=== PATIENT | female | born 1945 | race Caucasian/White ===

== ENCOUNTER 2017-12-13 13:05 | Inpatient (IN) ==
[2017-12-14] MEDS ORDERED: *HR* OxyCODONE Immed Rel 5 MG TABLET PO PRN (17:46)
[2017-12-14] MEDS ORDERED: *HR* Dextrose 50 % in Water (Syg) 50 ML SYRINGE IVP PRN (17:50)
[2017-12-14] MEDS ORDERED: Dextrose Gel 15 GM/37.5 ML TUBE PO PRN ×2 (17:50)
[2017-12-14] MEDS ORDERED: D5% in Water 1,000 ML IVC PRN (17:50)
[2017-12-14] MEDS ORDERED: tiZANidine 4 MG TABLET PO PRN (17:54)
[2017-12-14] MEDS ORDERED: Mag Hydrox/Al Hydrox/Simeth 30 ML UDC PO PRN (17:55)
[2017-12-14] MEDS ORDERED: Acetaminophen 325 MG TABLET PO PRN (18:13)
[2017-12-14] MEDS ORDERED: Acetaminophen 325 MG TABLET PO SCH (20:00)
[2017-12-14] MEDS: Insulin LISPRO 300 UNITS/3 ML VIAL SQ SCH (21:18)
[2017-12-14] MEDS: *HR* OxyCODONE Immed Rel 5 MG TABLET PO PRN (21:53)
[2017-12-14] MEDS: Gabapentin 300 MG CAPSULE PO SCH (21:53)
[2017-12-14] MEDS: Latanoprost 2.5 ML BOTTLE BOTH EYES SCH (21:53)
[2017-12-15] MEDS: *HR* OxyCODONE Immed Rel 5 MG TABLET PO PRN ×4 (04:20→21:14)
[2017-12-15] MEDS: *HR* Enoxaparin 40 MG/0.4 ML SYRINGE SQ SCH (04:20)
[2017-12-15 05:42] LABS: Basophils % 0.1 %; Eosinophils # 0.3 K/mcL (0.0-0.6); Eosinophils % 3.4 %; Hematocrit 29.4 % (35.3-44.9); Hemoglobin 9.2 g/dL (11.5-15.4); Immature Granulocytes % 1.9 % (0-4); Lymphocytes # 1.7 K/mcL (0.6-4.6); Lymphocytes % 19.5 %; Mean Corpuscular HGB Conc 31.3 g/dL (31.6-35.5); Mean Corpuscular Volume 92.7 fL (83.0-100.0); Mean Platelet Volume 10.1 fL (9.4-12.4); Monocytes # 0.8 K/mcL (0.0-1.3); Monocytes % 8.9 %; Neutrophils # 5.9 K/mcL (1.6-8.9); Platelet Count 307 K/mcL (140-400); Red Blood Count 3.17 M/mcL (3.82-4.97); Red Cell Distribution Width 14.6 % (11.5-14.5); Segmented Neutrophils % 66.2 %
[2017-12-15 05:46] LABS: INR 1.2; Prothrombin Time 13.3 Seconds (9.4-12.1)
[2017-12-15 05:57] LABS: Alanine Aminotransferase 52 Units/L (7-52); Albumin 3.1 g/dL (3.5-5.7); Albumin/Globulin Ratio 1.1 (1.1-2.2); Alkaline Phosphatase 138 Units/L (34-104); Aspartate Amino Transferase 15 Units/L (13-39); BUN/Creatinine Ratio 19 (6-26); Bilirubin,Total 0.5 mg/dL (0.3-1.0); Blood Urea Nitrogen 11 mg/dL (8-23); Calcium 8.5 mg/dL (8.6-10.3); Carbon Dioxide 30 mEq/L (23-29); Chloride 97 mEq/L (98-107); Globulin 2.8 g/dL (2.4-3.5); Glucose 172 mg/dL (70-105); Osmolality,Calculated 287 (280-300); Potassium 3.7 mEq/L (3.5-5.1); Sodium 137 mEq/L (136-145); Total Protein 5.9 g/dL (6.4-8.9); eGFR For Non-African Americans > 60 (> 60)
[2017-12-15] MEDS: Insulin LISPRO 300 UNITS/3 ML VIAL SQ SCH ×4 (09:34→21:11)
[2017-12-15] MEDS: *HR* Metformin 500 MG TABLET PO SCH ×2 (09:36→17:01)
[2017-12-15] MEDS: Multivit/Ca/Min/Fe/FA 1 TAB TABLET PO SCH (09:36)
[2017-12-15] MEDS: Cholecalciferol (D-3) 1,000 UNIT TABLET PO SCH (09:36)
--- NOTE | 2017-12-15 10:54 | Internal Med History&Physical ---
Date of Encounter: 12/15/17 Time of Encounter: 10:49 Assessment and Plan (1) Status post lumbar spine surgery for decompression of spinal cord Current visit: Yes Status: Acute We will hopefully improve the patient's posture and gait with physical and occupational therapy. (2) HTN (hypertension) Current visit: No Status: Chronic Clinically stable, will follow. Qualifiers: Hypertension type: essential hypertension Qualified Code(s): I10 - Essential (primary) hypertension (3) Diabetes Current visit: No Status: Chronic We will continue current regimen and watch with sliding scale insulin. Qualifiers: Diabetes mellitus type: type 2 Diabetes mellitus terminal operator insulin use: without terminal operator use Diabetes mellitus complication status: with unspecified complications Qualified Code(s): E11.8 - Type 2 diabetes mellitus with unspecified complications (4) Acute blood loss anemia Current visit: No Status: Acute Will follow, serially. (5) H/O gastric bypass Current visit: No Status: Acute Will follow, continue current regimen, may need medication dose adjustments because of this. (6) Glaucoma Current visit: Yes Status: Acute We will continue latanoprost drops. Qualifiers: Glaucoma type: unspecified Laterality: bilateral Qualified Code(s): H40.9 - Unspecified glaucoma Internal Medicine - H&P: HPI Chief complaint: Back pain Admitted From: Hospital to Hospital Transfer Plans for Post Hospital Care: Home History of present illness: Ms. Chandler is a 72 year old female status post revision lumbar spine fusion on 12/06/2017. This was done at [place] by Dr. Dunn, but patient needed a revision surgery a couple of days later as this was both an anterior and posterior approach. She has done well postoperatively and has persistent pain which is actually improving. She had surgery on her spine years ago and has never been able to straighten up. She is hopeful that she will be able to have normal station and gait and is here for therapy to improve this. The patient's past medical history was reviewed. She has a history of gastric bypass in 2004. Prior to that, she had diabetes, hypertension, GERD, and sleep apnea. Reflux is much better after her bypass. She does not believe she has had a recurrence of sleep apnea, after surgery. She states that her diabetes has been controlled with pills only. She takes multiple supplements because of her gastric bypass. She has glaucoma and is treated with latanoprost drops for same. She is a retired OB nurse, is living with her of 50 years, does not smoke or drink. Glaucoma is in her family and family history is otherwise noncontributory. She wears eyeglasses. She lost about 100 pounds with her gastric bypass but has gained 50 or 60 pounds of that back after immobility from her surgery. She states that her feet are always cold and that they have been especially cold after her surgery. Bowels and bladder have been functioning well, postoperatively. Past Med Surg Social Fam HX - Past Medical History Medical history: diabetes, hypertension Psychiatric history: no psych history - Past Surgical History Surgical History: cholecystectomy, knee replacement, other Additional surgical history: gastric bypass, TKR in 2006, [place] in 2004, femur revision in 2017, ALIF in 2018 - Social History Smoking Status: Never smoker Smokeless Tobacco Status: No Alcohol use: none Drug use: none - Family History Mother Living Status: Cause of : "I lost my mom to a heart condition, she was 85" Hx Family Cardiac Disorders: Yes Father Living Status: Cause of : "My dad from mesothelioma" Hx Family Cancer: Yes Internal Medicine - H&P: Meds Ascorbic Acid [Vitamin C] 1,000 mg PO DAILY 01/19/15 [History] Cholecalciferol (Vitamin D3) [Vitamin D3] 2,000 unit PO DAILY 01/19/15 [History] Cyanocobalamin (Vitamin B-12) [Vitamin B12] 100 mcg PO 3XW 01/19/15 [History] Latanoprost [Xalatan] 1 drop BOTH EYES HS 01/19/15 [History] Multivitamin [Multi-Day Vitamins] 1 tab PO DAILY 01/19/15 [History] Marquand-3S/Dha/Epa/Fish Oil [Fish Oil 1,200 mg Softgel] 1 cap PO DAILY 01/19/15 [ History] Omeprazole [PriLOSEC] 40 mg PO BID #60 cap 07/14/16 [Rx] Acetaminophen [Tylenol] 325 mg PO Q4HR 12/14/17 [History] Cholecalciferol (D-3) [Vitamin D] 4,000 unit PO DAILY 12/14/17 [History] Ferrous Sulfate [Iron] 325 mg PO TIDWM 12/14/17 [History] Gabapentin [Neurontin] 300 mg PO HS 12/14/17 [History] Metformin HCl 500 mg PO BIDWM 12/14/17 [History] MiraLAX 17 gm PO DAILY 12/14/17 [History] OxyCODONE Immed Rel 5 mg PO PRN PRN 12/14/17 [History] Vitamin B-12 1,000 mg PO 2XW 12/14/17 [History] 3 Allergy/AdvReac Type Severity Reaction Status Date / Time morphine Allergy Hives Verified 01/23/15 17:24 lisinopril AdvReac Mild Cough Verified 01/23/15 17:24 All Systems PM: Patient has no complaint of chest discomfort, dyspnea, orthopnea, breathing problems, palpitations, nausea or vomiting, constipation or diarrhea, other changes in bowel habits, heartburn, difficulty with urination, kidney problems or kidney stones, fevers chills or sweats, rash or itching, seizures, headache or lightheadedness, heat or cold intolerance, blood problems or anemia, or other new complaints, except as mentioned above. Review of systems is otherwise negative. - Constitutional Vitals: Temp Pulse Resp BP Pulse Ox 98.7 F 81 17 116/54 95 12/15/17 07:29 12/15/17 07:29 12/15/17 07:29 12/15/17 07:29 12/15/17 07:29 Exam: Examination: (Except as mentioned above): General: In no apparent distress, alert and oriented 3. Head: Atraumatic and normocephalic. Eyes: Extraocular muscles are intact, pupils equal round and reactive to light and accommodation. Sclerae anicteric. Ears: External ears are normal to inspection and hearing is grossly normal. Nose: Patent without lesion noted. Mouth: No intraoral lesions seen. Dentition is unremarkable. Neck: Supple with trachea midline. There is no thyromegaly or adenopathy and carotids are 2+ without bruit heard. Respiratory: No use of accessory muscles. Lungs are clear throughout. Normal airflow. Cardiovascular: Regular rate and rhythm without murmur appreciated. Abdomen: Bowel sounds are normal. No hepatosplenomegaly masses or tenderness. Morbidly obese and therefore difficult to palpate deeply. Extremities: No cyanosis clubbing or edema. There is no cord or calf tenderness. While feet are violaceous and cold, there is good capillary refill and good posterior tibial pulses. Neurological: A and O 3. Cranial nerves II through XII are intact. No focal deficits and no abnormal movements or postures. Skin: Warm and non-diaphoretic with no lesions noted. Breasts, pelvic and rectal: Not examined. She has a lumbar spine wound which is healing. There is approximately 2 cm spot of serosanguineous drainage, dried , at the dressing. No signs of infection. Internal Med - H&P Results - Labs CBC & Chem 7: 12/15/17 05:20 12/15/17 05:20 Labs: Short CBC 12/15/17 Range/Units 05:20 WBC 8.9 (4.3-11.1) K/mcL Hgb 9.2 L (11.5-15.4) g/dL Hct 29.4 L (35.3-44.9) % Plt Count 307 (140-400) K/mcL Neutrophils # 5.9 (1.6-8.9) K/mcL BMP 12/15/17 05:20 Sodium 137 Potassium 3.7 Chloride 97 L Carbon Dioxide 30 H BUN 11 Creatinine 0.59 L Glucose 172 H Calcium 8.5 L Liver Function 12/15/17 Range/Units 05:20 Total Bilirubin 0.5 (0.3-1.0) mg/dL AST 15 (13-39) Units/L ALT 52 (7-52) Units/L Alkaline Phosphatase 138 H (34-104) Units/L Albumin 3.1 L (3.5-5.7) g/dL
[2017-12-15] MEDS: tiZANidine 4 MG TABLET PO PRN (17:01)
[2017-12-15] MEDS: Gabapentin 300 MG CAPSULE PO SCH (21:12)
[2017-12-15] MEDS: Latanoprost 2.5 ML BOTTLE BOTH EYES SCH (21:12)
[2017-12-16] MEDS: *HR* OxyCODONE Immed Rel 5 MG TABLET PO PRN ×5 (02:42→21:06)
[2017-12-16] MEDS: *HR* Enoxaparin 40 MG/0.4 ML SYRINGE SQ SCH (06:34)
[2017-12-16] MEDS: *HR* Metformin 500 MG TABLET PO SCH ×2 (08:03→17:45)
[2017-12-16] MEDS: Multivit/Ca/Min/Fe/FA 1 TAB TABLET PO SCH (08:03)
[2017-12-16] MEDS: Cholecalciferol (D-3) 1,000 UNIT TABLET PO SCH (08:03)
[2017-12-16] MEDS: tiZANidine 4 MG TABLET PO PRN ×2 (10:49→17:45)
[2017-12-16] MEDS: Insulin LISPRO 300 UNITS/3 ML VIAL SQ SCH ×4 (10:55→21:05)
--- NOTE | 2017-12-16 11:24 | Internal Med Progress Note ---
Date of Encounter: 12/16/17 Time of Encounter: 11:22 - Assessment and plan (1) Status post lumbar spine surgery for decompression of spinal cord Current Visit: Yes Status: Acute Assessment and plan: Continue PT and OT. Continue current medications were pain. Back brace when up. Follow up with ortho as scheduled. (2) HTN (hypertension) Current Visit: Yes Status: Chronic Assessment and plan: Controlled with current medication. Monitor blood pressure. Qualifiers: Hypertension type: essential hypertension Qualified Code(s): I10 - Essential (primary) hypertension (3) Diabetes Current Visit: Yes Status: Chronic Assessment and plan: Continue current medication. Monitor fingerstick blood sugar. Will adjust medications as necessary. Qualifiers: Diabetes mellitus type: type 2 Diabetes mellitus manager intermediate insulin use: without manager intermediate use Diabetes mellitus complication status: with unspecified complications Qualified Code(s): E11.8 - Type 2 diabetes mellitus with unspecified complications (4) H/O gastric bypass Current Visit: Yes Status: Acute Assessment and plan: Continue current supplements. (5) Glaucoma Current Visit: Yes Status: Acute Assessment and plan: Continue current eyedrops. Qualifiers: Glaucoma type: unspecified Laterality: bilateral Qualified Code(s): H40.9 - Unspecified glaucoma - Time Spent With Patient less than 15 minutes - Subjective Interval history: Ambulating in hallway with standby assist with Walker. Wearing back brace. States pain is controlled. Occasionally having muscle spasms. Maintaining appetite and hydration. States bowels moved yesterday. at bedside. - Constitutional Vitals: Temp Pulse Resp BP Pulse Ox 98.2 F 62 17 106/67 90 12/16/17 07:55 12/16/17 07:55 12/16/17 07:55 12/16/17 07:55 12/16/17 07:55 General appearance: Present: cooperative, A&O X 3, pleasant, no acute distress, obese, answers questions appropriately - Head Head exam: Present: atraumatic, normocephalic - Eye Eye exam: Present: PERRL, conjuntiva pink, sclera anicteric Pupils: Present: PERRL - Neck Neck exam general surgery: Present: supple, trachea midline. Absent: lymphadenopathy - Respiratory Respiratory exam: Present: CTAB. Absent: accessory muscle use, rales, rhonchi, wheezes - Cardiovascular Cardiovascular exam: Present: RRR, +S1, +S2. Absent: diastolic murmur, gallop, rubs, systolic murmur - GI/Abdominal GI/Abdominal exam: Present: normal bowel sounds, soft, no peritoneal signs. Absent: distended, tenderness - Extremities Exam Extremities exam: Present: warm, radial pulses palpable and symmetrical. Absent : calf tenderness, cyanotic, pedal edema - Neurological Exam Neurological exam: Present: CN II-XII intact, oriented X3, no focal deficits. Absent: pronater drift, facial droop, speech deficit - Skin Skin exam: Present: dry, intact Internal Medicine: Result - Labs CBC & Chem 7: 12/15/17 05:20 12/15/17 05:20 - ABG Interpretation ABG results: PT/INR, D-dimer PT 13.3 Seconds (9.4-12.1) H 12/15/17 05:20 Consult Discharge Plan - Plan Referrals: Jae Davis MD [Primary Care Provider] -
[2017-12-16] MEDS: Latanoprost 2.5 ML BOTTLE BOTH EYES SCH (21:06)
[2017-12-16] MEDS: Gabapentin 300 MG CAPSULE PO SCH (21:06)
[2017-12-17] MEDS: *HR* OxyCODONE Immed Rel 5 MG TABLET PO PRN ×4 (01:05→17:56)
[2017-12-17] MEDS: *HR* Enoxaparin 40 MG/0.4 ML SYRINGE SQ SCH (06:25)
[2017-12-17] MEDS: tiZANidine 4 MG TABLET PO PRN ×3 (06:27→21:34)
[2017-12-17] MEDS: Cholecalciferol (D-3) 1,000 UNIT TABLET PO SCH (08:48)
[2017-12-17] MEDS: Multivit/Ca/Min/Fe/FA 1 TAB TABLET PO SCH (08:48)
[2017-12-17] MEDS: *HR* Metformin 500 MG TABLET PO SCH ×2 (08:49→17:53)
[2017-12-17] MEDS: Insulin LISPRO 300 UNITS/3 ML VIAL SQ SCH ×4 (08:53→21:35)
--- NOTE | 2017-12-17 10:56 | Internal Med Progress Note ---
Date of Encounter: 12/17/17 Time of Encounter: 10:52 - Assessment and plan (1) Status post lumbar spine surgery for decompression of spinal cord Current Visit: Yes Status: Acute Assessment and plan: Continue PT and OT. Continue current medications were pain. Back brace when up. Follow up with ortho as scheduled. (2) HTN (hypertension) Current Visit: Yes Status: Chronic Assessment and plan: Controlled with current medication. Monitor blood pressure. Qualifiers: Hypertension type: essential hypertension Qualified Code(s): I10 - Essential (primary) hypertension (3) Diabetes Current Visit: Yes Status: Chronic Assessment and plan: Continue current medication. Monitor fingerstick blood sugar. Will adjust medications as necessary. Qualifiers: Diabetes mellitus type: type 2 Diabetes mellitus medical terminologist insulin use: without medical terminologist use Diabetes mellitus complication status: with unspecified complications Qualified Code(s): E11.8 - Type 2 diabetes mellitus with unspecified complications (4) H/O gastric bypass Current Visit: Yes Status: Acute Assessment and plan: Continue current supplements. (5) Glaucoma Current Visit: Yes Status: Acute Assessment and plan: Continue current eyedrops. Qualifiers: Glaucoma type: unspecified Laterality: bilateral Qualified Code(s): H40.9 - Unspecified glaucoma - Time Spent With Patient less than 15 minutes - Subjective Interval history: Ambulating in hallway with standby assist with Walker. Wearing back brace. States pain is controlled. Occasionally having muscle spasms, but tizanadine helpful. Maintaining appetite and hydration. States bowels moved yesterday. at bedside. - Constitutional Vitals: Temp Pulse Resp BP Pulse Ox 98.1 F 73 16 132/88 91 12/17/17 07:46 12/17/17 07:46 12/17/17 07:46 12/17/17 08:03 12/17/17 07:46 General appearance: Present: cooperative, A&O X 3, pleasant, no acute distress, obese, answers questions appropriately - Head Head exam: Present: atraumatic, normocephalic - Eye Eye exam: Present: PERRL, conjuntiva pink, sclera anicteric Pupils: Present: PERRL - Neck Neck exam general surgery: Present: supple, trachea midline. Absent: lymphadenopathy - Respiratory Respiratory exam: Present: CTAB. Absent: accessory muscle use, rales, rhonchi, wheezes - Cardiovascular Cardiovascular exam: Present: RRR, +S1, +S2. Absent: diastolic murmur, gallop, rubs, systolic murmur - GI/Abdominal GI/Abdominal exam: Present: normal bowel sounds, soft, no peritoneal signs. Absent: distended, tenderness - Extremities Exam Extremities exam: Present: warm, radial pulses palpable and symmetrical. Absent : calf tenderness, cyanotic, pedal edema - Incison Comments: lumbar incision dry and intact - Neurological Exam Neurological exam: Present: CN II-XII intact, oriented X3, no focal deficits. Absent: pronater drift, facial droop, speech deficit - Skin Skin exam: Present: dry, intact Internal Medicine: Result - Labs CBC & Chem 7: 12/15/17 05:20 12/15/17 05:20 - ABG Interpretation ABG results: PT/INR, D-dimer PT 13.3 Seconds (9.4-12.1) H 12/15/17 05:20 Consult Discharge Plan - Plan Referrals: Jae Davis MD [Primary Care Provider] -
[2017-12-17] MEDS: Latanoprost 2.5 ML BOTTLE BOTH EYES SCH (21:34)
[2017-12-17] MEDS: Gabapentin 300 MG CAPSULE PO SCH (21:34)
[2017-12-18] MEDS: *HR* OxyCODONE Immed Rel 5 MG TABLET PO PRN ×4 (02:42→16:57)
[2017-12-18] MEDS: tiZANidine 4 MG TABLET PO PRN (05:58)
[2017-12-18] MEDS: *HR* Enoxaparin 40 MG/0.4 ML SYRINGE SQ SCH (05:58)
[2017-12-18] MEDS: Multivit/Ca/Min/Fe/FA 1 TAB TABLET PO SCH (09:11)
[2017-12-18] MEDS: *HR* Metformin 500 MG TABLET PO SCH ×2 (09:11→18:55)
[2017-12-18] MEDS: Cholecalciferol (D-3) 1,000 UNIT TABLET PO SCH (09:13)
[2017-12-18] MEDS: Insulin LISPRO 300 UNITS/3 ML VIAL SQ SCH ×4 (10:15→22:02)
--- NOTE | 2017-12-18 14:28 | Internal Med Progress Note ---
Date of Encounter: 12/18/17 Time of Encounter: 12:30 - Assessment and plan (1) Status post lumbar spine surgery for decompression of spinal cord Current Visit: Yes Status: Acute Assessment and plan: Patient is progressing nicely and we will continue therapies. Discharge in a few days? (2) HTN (hypertension) Current Visit: Yes Status: Chronic Assessment and plan: Clinically stable. We will continue home regimen and follow. Qualifiers: Hypertension type: essential hypertension Qualified Code(s): I10 - Essential (primary) hypertension (3) Diabetes Current Visit: Yes Status: Chronic Assessment and plan: Control is adequate. We will continue to follow with sliding scale insulin and current regimen. Qualifiers: Diabetes mellitus type: type 2 Diabetes mellitus reset merchandiser insulin use: without reset merchandiser use Diabetes mellitus complication status: with unspecified complications Qualified Code(s): E11.8 - Type 2 diabetes mellitus with unspecified complications (4) Acute blood loss anemia Current Visit: No Status: Acute (5) H/O gastric bypass Current Visit: Yes Status: Acute (6) Glaucoma Current Visit: Yes Status: Acute Qualifiers: Glaucoma type: unspecified Laterality: bilateral Qualified Code(s): H40.9 - Unspecified glaucoma - Subjective Interval history: Patient is feeling much better with only mild pain. She has no breathing problems or changes in bowel habits, etc. Patient has no complaint of chest discomfort, dyspnea, orthopnea, palpitations, nausea or vomiting, constipation or diarrhea, other changes in bowel habits, difficulty with urination, rash or itching, or other new complaints, except as mentioned above. Review of systems is otherwise negative. I discussed management of her care with nursing staff. - Constitutional Vitals: Temp Pulse Resp BP Pulse Ox 98.3 F 83 18 101/64 95 12/18/17 09:00 12/18/17 09:00 12/18/17 09:00 12/18/17 09:00 12/18/17 09:00 Exam: Examination: (Except as mentioned above): General: In no apparent distress. Alert and oriented 3. Nondiaphoretic. Head: Atraumatic and normocephalic. Respiratory: No use of accessory muscles. Lungs are clear throughout. Normal airflow. Cardiovascular: Regular rate and rhythm without murmur appreciated. Abdomen: Bowel sounds are normal. No hepatosplenomegaly mass or tenderness appreciated. Obese and therefore difficult to palpate deeply. Extremities: No cyanosis clubbing or edema. Skin: Warm and non-diaphoretic with no new lesions noted. Internal Medicine: Result - Labs CBC & Chem 7: 12/15/17 05:20 12/15/17 05:20 - ABG Interpretation ABG results: PT/INR, D-dimer PT 13.3 Seconds (9.4-12.1) H 12/15/17 05:20 Consult Discharge Plan - Plan Referrals: Jae Davis MD [Primary Care Provider] -
[2017-12-18] MEDS: Latanoprost 2.5 ML BOTTLE BOTH EYES SCH (21:59)
[2017-12-18] MEDS: Gabapentin 300 MG CAPSULE PO SCH (21:59)
[2017-12-19] MEDS: *HR* OxyCODONE Immed Rel 5 MG TABLET PO PRN ×5 (01:13→20:17)
[2017-12-19] MEDS: *HR* Enoxaparin 40 MG/0.4 ML SYRINGE SQ SCH (05:36)
[2017-12-19] MEDS: tiZANidine 4 MG TABLET PO PRN ×3 (05:38→20:17)
[2017-12-19] MEDS: Multivit/Ca/Min/Fe/FA 1 TAB TABLET PO SCH (09:41)
[2017-12-19] MEDS: Cholecalciferol (D-3) 1,000 UNIT TABLET PO SCH (09:42)
[2017-12-19] MEDS: *HR* Metformin 500 MG TABLET PO SCH ×2 (09:42→18:56)
[2017-12-19] MEDS: Insulin LISPRO 300 UNITS/3 ML VIAL SQ SCH ×4 (09:45→20:18)
--- NOTE | 2017-12-19 12:41 | Internal Med Progress Note ---
Addendum entered and electronically signed by Hasmukh Dodge MD 12/20/17 14:25: I have personally performed a face to face evaluation on this patient. I have r eviewed and agree with the care plan. History and Exam by me shows: The patient was evaluated by me yesterday but the note was not complete. This documentation is being completed today for that reason. Complaint of abdominal wound, as before. I feel this is not dehiscence and will recheck tomorrow. Pain control was better. Occasionally, she still has severe pain in her legs. She is moving bowels, adequately. Discussed care with other providers and/or nursing. Patient has no complaint of chest discomfort, dyspnea, orthopnea, palpitations, nausea or vomiting, constipation or diarrhea, other changes in bowel habits, difficulty with urination, rash or itching, or other new complaints, except as mentioned above. Review of systems is otherwise negative. Examination: (Except as mentioned above): General: In no apparent distress. Alert and oriented 3. Nondiaphoretic. Head: Atraumatic and normocephalic. Respiratory: No use of accessory muscles. Lungs are clear throughout. Normal airflow. Cardiovascular: Regular rate and rhythm without murmur appreciated. Abdomen: Bowel sounds are normal. No hepatosplenomegaly mass or tenderness appreciated. Obese and therefore difficult to palpate deeply. Extremities: No cyanosis clubbing or edema. Skin: Warm and non-diaphoretic with no new lesions noted. Original Note: Date of Encounter: 12/19/17 Time of Encounter: 12:39 - Assessment and plan (1) Status post lumbar spine surgery for decompression of spinal cord Current Visit: Yes Status: Acute Assessment and plan: Continue PT and OT. Continue current medications were pain. Back brace when up. Follow up with ortho as scheduled. (2) HTN (hypertension) Current Visit: Yes Status: Chronic Assessment and plan: Controlled with current medication. Monitor blood pressure. Qualifiers: Hypertension type: essential hypertension Qualified Code(s): I10 - Essential (primary) hypertension (3) Diabetes Current Visit: Yes Status: Chronic Assessment and plan: Continue current medication. Monitor fingerstick blood sugar. Will adjust medications as necessary. Qualifiers: Diabetes mellitus type: type 2 Diabetes mellitus termite renewal inspector insulin use: without shelter use Diabetes mellitus complication status: with unspecified complications Qualified Code(s): E11.8 - Type 2 diabetes mellitus with unspecified complications (4) H/O gastric bypass Current Visit: Yes Status: Acute Assessment and plan: Continue current supplements. (5) Glaucoma Current Visit: Yes Status: Acute Assessment and plan: Continue current eyedrops. Qualifiers: Glaucoma type: unspecified Laterality: bilateral Qualified Code(s): H40.9 - Unspecified glaucoma - Time Spent With Patient less than 15 minutes - Subjective Interval history: Ambulating in hallway with standby assist with Walker. Wearing back brace. States pain is controlled. Maintaining appetite and hydration. States bowels moved yesterday. at bedside. - Constitutional Vitals: Temp Pulse Resp BP Pulse Ox 98.4 F 71 18 92/58 91 12/19/17 08:32 12/19/17 08:32 12/19/17 08:32 12/19/17 08:32 12/19/17 08:32 General appearance: Present: cooperative, A&O X 3, pleasant, no acute distress, obese, answers questions appropriately - Head Head exam: Present: atraumatic, normocephalic - Eye Eye exam: Present: PERRL, conjuntiva pink, sclera anicteric Pupils: Present: PERRL - Neck Neck exam general surgery: Present: supple, trachea midline. Absent: lymphadenopathy - Respiratory Respiratory exam: Present: CTAB. Absent: accessory muscle use, rales, rhonchi, wheezes - Cardiovascular Cardiovascular exam: Present: RRR, +S1, +S2. Absent: diastolic murmur, gallop, rubs, systolic murmur - GI/Abdominal GI/Abdominal exam: Present: normal bowel sounds, soft, no peritoneal signs. Ab sent: distended, tenderness - Extremities Exam Extremities exam: Present: warm, radial pulses palpable and symmetrical. Absent: calf tenderness, cyanotic, pedal edema - Neurological Exam Neurological exam: Present: CN II-XII intact, oriented X3, no focal deficits. Absent: pronater drift, facial droop, speech deficit - Skin Skin exam: Present: dry, intact Internal Medicine: Result - Labs CBC & Chem 7: 12/15/17 05:20 12/15/17 05:20 - ABG Interpretation ABG results: PT/INR, D-dimer PT 13.3 Seconds (9.4-12.1) H 12/15/17 05:20 Consult Discharge Plan - Plan Referrals: Jae Davis MD [Primary Care Provider] -
[2017-12-19] MEDS: Gabapentin 300 MG CAPSULE PO SCH (20:16)
[2017-12-19] MEDS: Latanoprost 2.5 ML BOTTLE BOTH EYES SCH (20:18)
[2017-12-20] MEDS: *HR* Metformin 500 MG TABLET PO SCH ×2 (08:33→16:48)
[2017-12-20] MEDS: Multivit/Ca/Min/Fe/FA 1 TAB TABLET PO SCH (08:33)
[2017-12-20] MEDS: *HR* OxyCODONE Immed Rel 5 MG TABLET PO PRN ×3 (08:33→20:35)
[2017-12-20] MEDS: Cholecalciferol (D-3) 1,000 UNIT TABLET PO SCH (08:33)
[2017-12-20] MEDS: tiZANidine 4 MG TABLET PO PRN (11:37)
[2017-12-20 11:53] LABS: Basophils % 0.3 %; Eosinophils # 0.2 K/mcL (0.0-0.6); Eosinophils % 2.3 %; Hematocrit 30.8 % (35.3-44.9); Hemoglobin 9.4 g/dL (11.5-15.4); Immature Granulocytes % 0.7 % (0-4); Lymphocytes # 1.8 K/mcL (0.6-4.6); Lymphocytes % 19.8 %; Mean Corpuscular HGB Conc 30.5 g/dL (31.6-35.5); Mean Corpuscular Hemoglobin 29.3 pg (28.0-33.3); Mean Platelet Volume 10.2 fL (9.4-12.4); Monocytes # 0.6 K/mcL (0.0-1.3); Monocytes % 6.4 %; Neutrophils # 6.4 K/mcL (1.6-8.9); Platelet Count 436 K/mcL (140-400); Red Blood Count 3.21 M/mcL (3.82-4.97); Red Cell Distribution Width 14.6 % (11.5-14.5); Segmented Neutrophils % 70.5 %
[2017-12-20 12:14] LABS: BUN/Creatinine Ratio 13 (6-26); Blood Urea Nitrogen 10 mg/dL (8-23); Calcium 9.5 mg/dL (8.6-10.3); Carbon Dioxide 30 mEq/L (23-29); Chloride 97 mEq/L (98-107); Glucose 163 mg/dL (70-105); Osmolality,Calculated 285 (280-300); Potassium 3.6 mEq/L (3.5-5.1); Sodium 136 mEq/L (136-145); eGFR For Non-African Americans > 60 (> 60)
[2017-12-20] MEDS: Insulin LISPRO 300 UNITS/3 ML VIAL SQ SCH ×3 (12:59→20:35)
--- NOTE | 2017-12-20 14:29 | Internal Med Progress Note ---
Date of Encounter: 12/20/17 Time of Encounter: 14:27 - Assessment and plan (1) Status post lumbar spine surgery for decompression of spinal cord Current Visit: Yes Status: Acute Assessment and plan: She continues to progress well. See comments above about abdominal wound. No signs of infection. (2) HTN (hypertension) Current Visit: Yes Status: Chronic Assessment and plan: Clinically stable. We will continue home regimen and follow. Qualifiers: Hypertension type: essential hypertension Qualified Code(s): I10 - Essential (primary) hypertension (3) Diabetes Current Visit: Yes Status: Chronic Assessment and plan: Control is adequate. We will continue to follow with sliding scale insulin and current regimen. Qualifiers: Diabetes mellitus type: type 2 Diabetes mellitus bulb grower insulin use: without bulb grower use Diabetes mellitus complication status: with unspecified complications Qualified Code(s): E11.8 - Type 2 diabetes mellitus with unspecified complications (4) Acute blood loss anemia Current Visit: No Status: Acute Assessment and plan: Stable and well tolerated, improving. (5) H/O gastric bypass Current Visit: Yes Status: Acute Assessment and plan: Clinically stable and no acute issues. (6) Glaucoma Current Visit: Yes Status: Acute Assessment and plan: Continue current meds. Qualifiers: Glaucoma type: unspecified Laterality: bilateral Qualified Code(s): H40.9 - Unspecified glaucoma - Subjective Interval history: Patient is pleased with her progress and states that her pain is generally controlled. She has been moving her bowels without diarrhea or constipation. She is generally making strides with physical therapy and occupational therapy. Plan is to discharge soon. Patient has no complaint of chest discomfort, dyspnea, orthopnea, palpitations, nausea or vomiting, constipation or diarrhea, other changes in bowel habits, difficulty with urination, rash or itching, or other new complaints, except as mentioned above. Review of systems is otherwise negative. I discussed management of her care with nursing staff. - Constitutional Vitals: Temp Pulse Resp BP Pulse Ox 98.0 F 89 17 145/69 98 12/20/17 07:00 12/20/17 07:00 12/20/17 07:00 12/20/17 07:00 12/20/17 07:00 Exam: Examination: (Except as mentioned above): General: In no apparent distress. Alert and oriented 3. Nondiaphoretic. Head: Atraumatic and normocephalic. Respiratory: No use of accessory muscles. Lungs are clear throughout. Normal airflow. Cardiovascular: Regular rate and rhythm without murmur appreciated. Abdomen: Bowel sounds are normal. No hepatosplenomegaly mass or tenderness appreciated. Obese and therefore difficult to palpate deeply. Extremities: No cyanosis clubbing or edema. Skin: Warm and non-diaphoretic with no new lesions noted. Abdominal incision looks well opposed and I feel that she simply removed "scab" the other day. I advised patient, nursing, occupational therapy and physical therapy to make sure that this is covered before any dressing changes, etc. Internal Medicine: Result - Labs CBC & Chem 7: 12/20/17 05:25 12/20/17 05:25 Labs: Short CBC 12/20/17 Range/Units 05:25 WBC 9.1 (4.3-11.1) K/mcL Hgb 9.4 L (11.5-15.4) g/dL Hct 30.8 L (35.3-44.9) % Plt Count 436 H (140-400) K/mcL Neutrophils # 6.4 (1.6-8.9) K/mcL BMP 12/20/17 05:25 Sodium 136 Potassium 3.6 Chloride 97 L Carbon Dioxide 30 H BUN 10 Creatinine 0.76 Glucose 163 H Calcium 9.5 - ABG Interpretation ABG results: PT/INR, D-dimer PT 13.3 Seconds (9.4-12.1) H 12/15/17 05:20 Consult Discharge Plan - Plan Referrals: Jae Davis MD [Primary Care Provider] -
[2017-12-20] MEDS: *HR* Enoxaparin 40 MG/0.4 ML SYRINGE SQ SCH (14:54)
[2017-12-20] MEDS: Latanoprost 2.5 ML BOTTLE BOTH EYES SCH (20:34)
[2017-12-20] MEDS: Gabapentin 300 MG CAPSULE PO SCH (20:34)
[2017-12-21] MEDS: *HR* OxyCODONE Immed Rel 5 MG TABLET PO PRN ×3 (03:02→12:54)
[2017-12-21] MEDS: *HR* Enoxaparin 40 MG/0.4 ML SYRINGE SQ SCH (06:07)
[2017-12-21] MEDS: tiZANidine 4 MG TABLET PO PRN (07:07)
[2017-12-21] MEDS: Insulin LISPRO 300 UNITS/3 ML VIAL SQ SCH ×2 (08:09→12:17)
[2017-12-21 08:37] VITALS: BP 150/79
[2017-12-21] MEDS: *HR* Metformin 500 MG TABLET PO SCH (09:21)
[2017-12-21] MEDS: Multivit/Ca/Min/Fe/FA 1 TAB TABLET PO SCH (09:21)
[2017-12-21] MEDS: Cholecalciferol (D-3) 1,000 UNIT TABLET PO SCH (09:21)
--- NOTE | 2017-12-21 10:43 | Discharge Summary ---
Addendum entered and electronically signed by Hasmukh Dodge MD 12/21/17 13:24: I have personally performed a face to face evaluation on this patient. I have r eviewed and agree with the care plan. History and Exam by me shows: The patient is without complaint. She states that bowels are moving well without diarrhea or constipation. She states that her pain is improved. She has no questions about going home. I encouraged her to fill at least 5 days of her Lovenox and to discuss this with her surgeon on Sunday at her appointment. Discussed care with other providers and/or nursing. Patient has no complaint of chest discomfort, dyspnea, orthopnea, palpitations, nausea or vomiting, constipation or diarrhea, other changes in bowel habits, di fficulty with urination, rash or itching, or other new complaints, except as mentioned above. Review of systems is otherwise negative. Examination: (Except as mentioned above): General: In no apparent distress. Alert and oriented 3. Nondiaphoretic. She is wearing her abdominal brace. Head: Atraumatic and normocephalic. Respiratory: No use of accessory muscles. Lungs are clear throughout. Normal airflow. Cardiovascular: Regular rate and rhythm without murmur appreciated. Abdomen: Bowel sounds are normal. No hepatosplenomegaly mass or tenderness appreciated. Obese and therefore difficult to palpate deeply. Patient is examined upright in chair and this also limits exam. Extremities: No cyanosis clubbing or edema. Skin: Warm and non-diaphoretic with no new lesions noted. Original Note: Date of Encounter: 12/21/17 Time of Encounter: 10:40 - Discharge Diagnosis (1) Status post lumbar spine surgery for decompression of spinal cord Priority: Primary Status: Acute Comments: Ambulating household distances. Reminded patient to wear back brace while up and out of bed. Follow up with ortho on December 24 as scheduled. Pain controlled. Continue outpatient physical therapy. (2) HTN (hypertension) Priority: Secondary Status: Chronic Comments: Controlled with current medications. Monitor blood pressure. Follow up with PCP. Qualifiers: Hypertension type: essential hypertension Qualified Code(s): I10 - Essential (primary) hypertension (3) Diabetes Priority: Secondary Status: Chronic Comments: Controlled with current medications. Monitor fingerstick blood sugar. Follow up with PCP. Qualifiers: Diabetes mellitus type: type 2 Diabetes mellitus poultry killer insulin use: without poultry killer use Diabetes mellitus complication status: with unspecified complications Qualified Code(s): E11.8 - Type 2 diabetes mellitus with unspecified complications (4) H/O gastric bypass Priority: Secondary Status: Acute (5) Glaucoma Priority: Secondary Status: Acute Comments: Continue eyedrops. Follow up with PCP. Qualifiers: Glaucoma type: unspecified Laterality: bilateral Qualified Code(s): H40.9 - Unspecified glaucoma Hospital course: Ms. Chandler is a 72 year old female discharging to home today with status post lumbar fusion. Patient has follow-up with surgeon on December 24. Ambulating household distances with Walker. Reminded to wear braces when up and out of bed. Continue current medications. Follow up with PCP in one week. Discharge discussed with: patient, family, nurse, social work - Time Spent with Patient Total time spent providing and/or coordinating discharge services: Less than 30 minutes - Discharge Medications Home Medications: Ascorbic Acid [Vitamin C] 1,000 mg PO DAILY 01/19/15 [History] Cholecalciferol (Vitamin D3) [Vitamin D3] 2,000 unit PO DAILY 01/19/15 [History] Cyanocobalamin (Vitamin B-12) [Vitamin B12] 100 mcg PO 3XW 01/19/15 [History] Latanoprost [Xalatan] 1 drop BOTH EYES HS 01/19/15 [History] Multivitamin [Multi-Day Vitamins] 1 tab PO DAILY 01/19/15 [History] [place]-3S/Dha/Epa/Fish Oil [Fish Oil 1,200 mg Softgel] 1 cap PO DAILY 01/19/15 [History] Omeprazole [PriLOSEC] 40 mg PO BID #60 cap 07/14/16 [Rx] Acetaminophen [Tylenol] 325 mg PO Q4HR 12/14/17 [History] Cholecalciferol (D-3) [Vitamin D] 4,000 unit PO DAILY 12/14/17 [History] Ferrous Sulfate [Iron] 325 mg PO TIDWM 12/14/17 [History] Gabapentin [Neurontin] 300 mg PO HS 12/14/17 [History] Metformin HCl 500 mg PO BIDWM 12/14/17 [History] MiraLAX 17 gm PO DAILY 12/14/17 [History] OxyCODONE Immed Rel 5 mg PO PRN PRN 12/14/17 [History] Vitamin B-12 1,000 mg PO 2XW 12/14/17 [History] Insulin LISPRO [HumaLOG] 0 units SQ TIDAC vial 12/21/17 [Rx] Allergies/Adverse Reactions: Allergy/AdvReac Type Severity Reaction Status Date / Time morphine Allergy Hives Verified 01/23/15 17:24 lisinopril AdvReac Mild Cough Verified 01/23/15 17:24 Date of admission: 12/14/17 16:38 Primary care physician: Jae Davis MD Consults: 12/14/17 17:50 Consult to Occupational Therapy [CONS] Routine Comment: s/p ALIF Reason for Consult: s/p ALIF Does patient have active BEDREST order?: No Is patient medically & hemodynamically stable?: Yes Patient assessed for mobility or mobilized this visit?: No Consult to Physical Therapy [CONS] Routine Comment: s/p ALIF Reason for Consult: s/p ALIF Does patient have active BEDREST order?: No Is patient medically & hemodynamically stable?: Yes Patient assessed for mobility or mobilized this visit?: Yes Consult to Recreational Therapy [CONS] Routine Comment: Consult to Er Tech [CONS] Routine Reason for SW Consult: s/p ALIF 12/14/17 17:54 Consult to Physical Medicine/Rehab [CONS] Routine Reason for Consult: s/p ALIF Call Completed: Yes 12/18/17 16:13 Consult to Psychology [CONS] Routine Consulting Provider: Janessa Vigil Reason for Consult: patient was present when [facility] room mate , would like you to check on her Call Completed: Yes Discharging clinician: Hasmukh Dodge Anticipated date of discharge: 12/21/17 - Constitutional Vitals: Temp Pulse Resp BP Pulse Ox 98.2 F 86 18 150/79 98 12/21/17 08:36 12/21/17 08:36 12/21/17 08:36 12/21/17 08:36 12/21/17 08:36 General appearance: Present: cooperative, A&O X 3, pleasant, no acute distress, obese, answers questions appropriately - Head Head exam: Present: atraumatic, normocephalic - Eye Eye exam: Present: PERRL, conjuntiva pink, sclera anicteric Pupils: Present: PERRL - Neck Neck exam general surgery: Present: supple, trachea midline. Absent: lymphadenopathy - Respiratory Respiratory exam: Present: CTAB. Absent: accessory muscle use, rales, rhonchi, wheezes - Cardiovascular Cardiovascular exam: Present: RRR, +S1, +S2. Absent: diastolic murmur, gallop, rubs, systolic murmur - GI/Abdominal GI/Abdominal exam: Present: normal bowel sounds, soft, no peritoneal signs. Absent: distended, tenderness - Extremities Exam Extremities exam: Present: warm, radial pulses palpable and symmetrical. Absent: calf tenderness, cyanotic, pedal edema - Incison Comments: Abdominal incision well approximated, no drainage. Lumbar spine incision well approximated, no drainage. - Neurological Exam Neurological exam: Present: CN II-XII intact, oriented X3, no focal deficits. Absent: pronater drift, facial droop, speech deficit - Skin Skin exam: Present: dry, intact - Patient Status Disposition: Home, Self-Care Condition: Good Functional capacity at discharge: uses cane/walker Overall status at discharge: patient is progressing back to baseline - Discharge Instructions Follow Up With: Jae Dvais MD [Primary Care Provider] - - Diet and Activity Activity: as per physical therapy Diet: diabetic diet
== END 2017-12-21 13:50 | disposition home or self-care (01) | DRG 949 ==
LOC: INPGRE 12-14 16:38

== ENCOUNTER 2018-01-09 17:27 | Inpatient (IN) ==
[2018-01-10] MEDS ORDERED: *HR* OxyCODONE Immed Rel 5 MG TABLET PO PRN (16:24)
[2018-01-10] MEDS ORDERED: Ondansetron ODT 4 MG TAB.RAPDIS SL PRN (17:04)
[2018-01-10] MEDS ORDERED: Acetaminophen 325 MG TABLET PO PRN (17:22)
[2018-01-10] MEDS: *HR* Enoxaparin 30 MG/0.3 ML SYRINGE SQ SCH (18:28)
[2018-01-10] MEDS: *HR* OxyCODONE Immed Rel 5 MG TABLET PO PRN (18:28)
[2018-01-10] MEDS: Gabapentin 300 MG CAPSULE PO SCH (22:55)
[2018-01-10] MEDS: Latanoprost 2.5 ML BOTTLE BOTH EYES SCH (22:55)
[2018-01-11] MEDS: *HR* OxyCODONE Immed Rel 5 MG TABLET PO PRN ×5 (00:15→20:25)
[2018-01-11 05:15] LABS: Basophils # 0.1 K/mcL (0.0-0.2); Basophils % 0.5 %; Eosinophils # 0.2 K/mcL (0.0-0.6); Eosinophils % 2.1 %; Hematocrit 29.4 % (35.3-44.9); Immature Granulocytes % 0.9 % (0-4); Lymphocytes # 1.9 K/mcL (0.6-4.6); Lymphocytes % 21.2 %; Mean Corpuscular HGB Conc 30.6 g/dL (31.6-35.5); Mean Corpuscular Hemoglobin 28.4 pg (28.0-33.3); Mean Corpuscular Volume 92.7 fL (83.0-100.0); Mean Platelet Volume 9.5 fL (9.4-12.4); Monocytes # 0.5 K/mcL (0.0-1.3); Monocytes % 5.2 %; Neutrophils # 6.4 K/mcL (1.6-8.9); Platelet Count 550 K/mcL (140-400); Red Blood Count 3.17 M/mcL (3.82-4.97); Red Cell Distribution Width 15.5 % (11.5-14.5); Segmented Neutrophils % 70.1 %
[2018-01-11 05:32] LABS: Alanine Aminotransferase 10 Units/L (7-52); Alkaline Phosphatase 95 Units/L (34-104); Aspartate Amino Transferase 14 Units/L (13-39); BUN/Creatinine Ratio 8 (6-26); Bilirubin,Total 0.3 mg/dL (0.3-1.0); Blood Urea Nitrogen 6 mg/dL (8-23); Calcium 8.9 mg/dL (8.6-10.3); Carbon Dioxide 29 mEq/L (23-29); Chloride 100 mEq/L (98-107); Globulin 3.1 g/dL (2.4-3.5); Glucose 135 mg/dL (70-105); Magnesium 2.1 mg/dL (1.6-2.6); Osmolality,Calculated 284 (280-300); Potassium 3.5 mEq/L (3.5-5.1); Sodium 137 mEq/L (136-145); Total Protein 6.1 g/dL (6.4-8.9); eGFR For Non-African Americans > 60 (> 60)
[2018-01-11] MEDS: *HR* Enoxaparin 30 MG/0.3 ML SYRINGE SQ SCH ×2 (06:37→16:52)
[2018-01-11] MEDS: Multivit/Ca/Min/Fe/FA 1 TAB TABLET PO SCH (07:49)
[2018-01-11] MEDS: Ascorbic Acid 500 MG TABLET PO SCH (07:49)
[2018-01-11] MEDS: Cholecalciferol (D-3) 1,000 UNIT TABLET PO SCH (07:49)
[2018-01-11] MEDS ORDERED: *HR* Metformin 500 MG TABLET PO SCH (08:00)
--- NOTE | 2018-01-11 11:34 | Internal Med History&Physical ---
Addendum entered and electronically signed by Rachel Bray 01/11/18 18:23: I have personally performed a face to face evaluation on this patient. I have reviewed and agree with the care plan. Original Note: Date of Encounter: 01/11/18 Time of Encounter: 11:29 Assessment and Plan (1) Status post lumbar spine surgery for decompression of spinal cord Current visit: Yes Status: Acute Patient is a new admission to this facility for rehabilitation due to deconditioning and neurological deficits secondary to a lumbar laminectomy. Patient had a L5-S1 laminectomy earlier in the month which later became infected at the surgical site. Patient has had repeated washouts with IV antibiotics and was discharged to this facility with a wound VAC and oral antibiotics. Patient has a right lower extremity deficit of 4/5 muscle strength which includes a dorsiflexion of 4/5. Patient states that her pain is tolerable with current medications. Patient remains afebrile. We will continue with current physical therapy and monitor patient (2) Diabetes Current visit: No Status: Acute No acute issues. Glucose is been pretty well-controlled with most fingersticks readings less than 170. We will continue with current coverage. Qualifiers: Diabetes mellitus type: type 2 Diabetes mellitus intermediate accountant insulin use: without intermediate accountant use Diabetes mellitus complication status: with unspecified complications Qualified Code(s): E11.8 - Type 2 diabetes mellitus with unspecified complications (3) Anemia Current visit: No Status: Acute No acute issues. Patient's most recent hemoglobin was 9.0. Asymptomatic. We will continue with current plan of care Qualifiers: Anemia type: other cause Other causes of anemia: acute posthemorrhagic Qualified Code(s): D62 - Acute posthemorrhagic anemia Internal Medicine - H&P: HPI Chief complaint: infected lumbar wound Admitted From: Hospital to Hospital Transfer Plans for Post Hospital Care: Home History of present illness: Ms. Chandler is a 72 year old female who was transferred to this facility for rehabilitation due to deconditioning and sickle deficits related to a lumbar laminectomy. Patient originally had a lumbar laminectomy that was performed on L5-S1 several years ago, but she states that she continued to have issues postoperatively and was reevaluated by a neurosurgeon at [facility]. Patient had a redo laminectomy of the lumbar that was performed on 12/07/2017. Patient developed a wound infection postoperatively and was treated with IV antibiotics and taken back to surgery for further washout during her recovery at [facility]. Patient was discharged to our facility with continued oral antibiotic coverage. Patient states that she continues to have a neurological deficit of right lower extremity weakness postoperatively and states that she was transferred to this facility for strengthening per PT/OT. Patient currently states that she has mild low back pain, due to just finishing her initial physical therapy. Patient states that her pain is tolerable with her current pain medications. Patient denies any acute neurological deficits that she has noted since her arrival to facility. Patient denies any other issues or dyspnea. Patient remains afebrile Past Med Surg Social Fam HX - Past Medical History Medical history: diabetes, hypertension Additional medical history: lumbar infection Psychiatric history: no psych history - Past Surgical History Surgical History: cholecystectomy, knee replacement, other Additional surgical history: lumbar fusion and revision - Social History Smoking Status: Never smoker Smokeless Tobacco Status: No Alcohol use: none Drug use: none - Family History Mother Living Status: Hx Family Cardiac Disorders: Yes Father Living Status: Hx Family Cardiac Disorders: Yes Hx Family Cancer: Yes Internal Medicine - H&P: Meds Ascorbic Acid [Vitamin C] 1,000 mg PO DAILY 01/19/15 [History] Cyanocobalamin (Vitamin B-12) [Vitamin B12] 100 mcg PO 2XW 01/19/15 [History] Latanoprost [Xalatan] 1 drop BOTH EYES HS 01/19/15 [History] Multivitamin [Multi-Day Vitamins] 1 tab PO DAILY 01/19/15 [History] Acetaminophen [Tylenol] 325 mg PO Q6HR PRN 12/14/17 [History] Cholecalciferol (D-3) [Vitamin D] 4,000 unit PO DAILY 12/14/17 [History] Ferrous Sulfate [Iron] 325 mg PO TIDWM 12/14/17 [History] Gabapentin [Neurontin] 300 mg PO HS 12/14/17 [History] Metformin HCl 500 mg PO BIDWM 12/14/17 [History] MiraLAX 17 gm PO DAILY 12/14/17 [History] Vitamin B-12 1,000 mg PO 2XW 12/14/17 [History] Allergy/AdvReac Type Severity Reaction Status Date / Time morphine Allergy Hives Verified 01/23/15 17:24 lisinopril AdvReac Mild Cough Verified 01/23/15 17:24 All Systems PM: A 10-system review of systems was performed and is negative for pertinent findings except as documented above in the HPI. - Constitutional Constitutional: as per HPI, no chills, no fever(s), no night sweats - EENT Eyes: no change in vision, no discharge, no pain, no photophobia Ears: no ear discharge, no ear pain, no tinnitus Nose, mouth and throat: no dysphagia, no nasal discharge, no neck pain, no sore throat - Cardiovascular Cardiovascular ROS IM: as per HPI, no chest pain, no diaphoresis, no dyspnea, no lightheadedness, no palpitations, no syncope - Respiratory Respiratory: as per HPI, no cough, no dyspnea, no wheezing, no excessive phlegm production - Gastrointestinal Gastrointestinal: as per HPI, no abdominal pain, no diarrhea, no hematemesis, no hematochezia, no melena, no nausea, no vomiting - Genitourinary Genitourinary: no change in urinary stream, no dysuria, no flank pain, no hematuria - Musculoskeletal Musculoskeletal ROS IM: no numbness, no tingling - Integumentary Integumentary IM: no rash, no unusual bruising - Neurological Neurological ROS: no confusion, no convulsions, no focal weakness, no numbness, no tingling, no tremor(s) - Hematologic/Lymphatic Hematologic/Lymphatic: no easy bruising - Constitutional Vitals: Temp Pulse Resp BP Pulse Ox 98.3 F 75 17 116/56 97 01/11/18 08:31 01/11/18 08:31 01/11/18 08:31 01/11/18 08:31 01/11/18 08:31 General appearance: Present: A&O X 3, pleasant - Head Head exam: Present: atraumatic, normocephalic - Eye Eye exam: Present: PERRL, conjuntiva pink, sclera anicteric Pupils: Present: PERRL - Neck Neck exam general surgery: Present: supple, trachea midline. Absent: lymphadenopathy - Respiratory Respiratory exam: Present: CTAB. Absent: accessory muscle use, rales, rhonchi, wheezes - Cardiovascular Cardiovascular exam: Present: RRR, +S1, +S2. Absent: diastolic murmur, gallop, rubs, systolic murmur - GI/Abdominal GI/Abdominal exam: Present: normal bowel sounds, soft, no peritoneal signs. Absent: distended, tenderness - Extremities Exam Extremities exam: Present: warm, radial pulses palpable and symmetrical. Absent: calf tenderness, cyanotic, pedal edema - Back Exam Additional comments: Lumbar surgical dressing remains dry and intact with wound VAC in place and in use. [place] drainage received - Neurological Exam Neurological exam: Present: CN II-XII intact, oriented X3, no focal deficits. Absent: pronater drift, facial droop, speech deficit Additional comments: Patient noted to have slight MS weakness to right lower extremity. RLE MS 4/5 for flex/ext on prox/dist. Slight dorsifexion weakness at 4/5. RUE and LE 5/5 MS - Skin Skin exam: Present: dry, intact Internal Med - H&P Results - Labs CBC & Chem 7: 01/11/18 04:55 01/11/18 04:55 Labs: Short CBC 01/11/18 Range/Units 04:55 WBC 9.2 (4.3-11.1) K/mcL Hgb 9.0 L (11.5-15.4) g/dL Hct 29.4 L (35.3-44.9) % Plt Count 550 H (140-400) K/mcL Neutrophils # 6.4 (1.6-8.9) K/mcL BMP 01/11/18 04:55 Sodium 137 Potassium 3.5 Chloride 100 Carbon Dioxide 29 BUN 6 L Creatinine 0.78 Glucose 135 H Calcium 8.9 Liver Function 01/11/18 Range/Units 04:55 Total Bilirubin 0.3 (0.3-1.0) mg/dL AST 14 (13-39) Units/L ALT 10 (7-52) Units/L Alkaline Phosphatase 95 (34-104) Units/L Albumin 3.0 L (3.5-5.7) g/dL
[2018-01-11] MEDS: Gabapentin 300 MG CAPSULE PO SCH (20:25)
[2018-01-11] MEDS: Latanoprost 2.5 ML BOTTLE BOTH EYES SCH (20:26)
[2018-01-12] MEDS: *HR* OxyCODONE Immed Rel 5 MG TABLET PO PRN ×4 (01:02→20:22)
[2018-01-12] MEDS: *HR* Enoxaparin 30 MG/0.3 ML SYRINGE SQ SCH ×2 (05:40→17:26)
[2018-01-12] MEDS: Multivit/Ca/Min/Fe/FA 1 TAB TABLET PO SCH (08:30)
[2018-01-12] MEDS: Ascorbic Acid 500 MG TABLET PO SCH (08:30)
[2018-01-12] MEDS: Cholecalciferol (D-3) 1,000 UNIT TABLET PO SCH (08:30)
[2018-01-12 19:47] LABS: Estimated Average Glucose 160 mg/dl; Hemoglobin A1C 7.2 %
[2018-01-12] MEDS: Gabapentin 300 MG CAPSULE PO SCH (20:16)
[2018-01-12] MEDS: Ketoconazole 2% CRM 15 GM TUBE TP SCH (20:17)
[2018-01-12] MEDS: Latanoprost 2.5 ML BOTTLE BOTH EYES SCH (20:17)
[2018-01-13] MEDS: *HR* OxyCODONE Immed Rel 5 MG TABLET PO PRN ×4 (02:31→20:35)
[2018-01-13] MEDS: *HR* Enoxaparin 30 MG/0.3 ML SYRINGE SQ SCH ×2 (04:30→17:51)
[2018-01-13 05:24] LABS: Thyroid Stimulating Hormone 2.262 mcIU/mL (0.340-5.600)
[2018-01-13] MEDS: Multivit/Ca/Min/Fe/FA 1 TAB TABLET PO SCH (07:38)
[2018-01-13] MEDS: Ascorbic Acid 500 MG TABLET PO SCH (07:38)
[2018-01-13] MEDS: Cholecalciferol (D-3) 1,000 UNIT TABLET PO SCH (07:38)
[2018-01-13] MEDS: Ketoconazole 2% CRM 15 GM TUBE TP SCH ×2 (07:39→20:46)
--- NOTE | 2018-01-13 11:04 | Internal Med Progress Note ---
Date of Encounter: 01/12/18 Time of Encounter: 14:50 - Subjective Interval history: Interval history Patient was admit - to our rehabilitation unit because of severe d econditioning and neurological deficits secondary to a lumbar laminectomy. She had a L5-S1 laminectomy earlier in the month which later became infected at the surgical site. Patient has had repeated washouts with IV antibiotics and was discharged to this facility with a wound VAC and oral antibiotics. Patient has since admission a right lower extremity deficit of 4/5 muscle strength which includes a dorsiflexion of 4/5. Patient states that her pain is tolerable with current medications. No new neurologic deficits. Patient has no fever and denies chills. Her appetite is good. She is in good spirits and family is supportive. (1) Deconditioning post lumbar laminectomy 10- at [facility], and post op infection with lower extremity weakness. Transferred here for rehab will get pt ot recreation and social service. continue current plan of care with wound oral antibiotic course will add probiotic pain control (2) Diabetes Current visit: No Status: Acute No acute issues. Glucose is been pretty well-controlled with most fingersticks readings less than 170. We will continue with current coverage. Pt reports this has been stable in past. Qualifiers: Diabetes mellitus type: type 2 Diabetes mellitus intermediate teacher insulin use: without intermediate teacher use Diabetes mellitus complication status: with unspecified complications Qualified Code(s): E11.8 - Type 2 diabetes mellitus with unsp ecified complications (3) Anemia Current visit: No Status: Acute Pt has no obvious bleeding. She is on short course of lovenox 30 bid as advised per surgery. She does have chronic mild pedal edema and no change in this. She has hx of gastric bypass remote. She has hx of both iron and b12 deficiency due to malabsorption, She has been taking supplements. Will check iron panel and b12 level. Will follow cbc. If changes may need to alter the lovenox. No acute issues. Patient's most recent hemoglobin was 9.0. Asymptomatic. We will continue with current plan of care Qualifiers: Anemia type: other cause Other causes of anemia: acute posthemorrhagic Qualified Code(s): D62 - Acute posthemorrhagic anemia Allergy/AdvReac Type Severity Reaction Status Date / Time morphine Allergy Hives Verified 01/23/15 17:24 lisinopril AdvReac Mild Cough Verified 01/23/15 17:24 Exam General appearance: Present: A&O X 3, pleasant and sitting up in chair - Neck Neck exam Present: supple, trachea midline. Absent: lymphadenopathy no bruit - Respiratory Respiratory exam: Present: CTAB. Absent: rales, rhonchi, wheezes - Cardiovascular Cardiovascular exam: Present: RRR, +S1, +S2. Absent: murmur, - GI/Abdominal GI/Abdominal exam: Present: normal bowel sounds, soft, no peritoneal signs. nontender - Extremities Exam Extremities exam: Present: warm, radial pulses palpable and symmetrical. mild pedal edema bilateral Absent: no calf tenderness - Back Exam Additional comments: Lumbar surgical dressing remains dry and intact - Neurological Exam Neurological exam: Present: CN II-XII intact, oriented X3, no focal deficits. Absent: pronater drift, facial droop, speech deficit Additional comments: Patient noted to have slight MS weakness to right lower extremity. RLE MS 4/5 for flex/ext on prox/dist. Slight dorsifexion weakness at 4/5. RUE and LE 5/5 MS - Constitutional Vitals: Temp Pulse Resp BP Pulse Ox 98.1 F 91 18 117/70 94 01/13/18 07:22 01/13/18 07:22 01/13/18 07:22 01/13/18 07:22 01/13/18 07:22 General appearance: Present: A&O X 3, pleasant Internal Medicine: Result - Labs CBC & Chem 7: 01/11/18 04:55 01/11/18 04:55 Consult Discharge Plan - Plan Referrals: Jae Davis MD [Primary Care Provider] -
--- NOTE | 2018-01-13 11:05 | Internal Med Progress Note ---
Date of Encounter: 01/13/18 Time of Encounter: 11:00 - Subjective Interval history: Interval history Patient was admit 12-11 to our rehabilitation unit because of severe d econditioning and neurological deficits secondary to a lumbar laminectomy. She had a L5-S1 laminectomy earlier in the month which later became infected at the surgical site. Patient has had repeated washouts with IV antibiotics and was discharged to this facility with a wound VAC and oral antibiotics. Patient has since admission a right lower extremity deficit of 4/5 muscle strength which includes a dorsiflexion of 4/5. Patient states that her pain is tolerable with current medications. No new neurologic deficits. Patient has no fever and denies chills. Her appetite is good. She is in good spirits and family is supportive. (1) Deconditioning post lumbar laminectomy 10- at [facility], and post op infection with lower extremity weakness. Transferred here for rehab will get pt ot recreation and social service. continue current plan of care with wound oral antibiotic course will add probiotic pain control (2) Diabetes Current visit: No Status: Acute No acute issues. Glucose is been pretty well-controlled with most fingersticks readings less than 170. We will continue with current coverage. Pt reports this has been stable in past. Qualifiers: Diabetes mellitus type: type 2 Diabetes mellitus intermodal truck driver insulin use: without intermodal truck driver use Diabetes mellitus complication status: with unspecified complications Qualified Code(s): E11.8 - Type 2 diabetes mellitus with unsp ecified complications (3) Anemia Current visit: No Status: Acute Pt has no obvious bleeding. She is on short course of lovenox 30 bid as advised per surgery. She does have chronic mild pedal edema and no change in this. She has hx of gastric bypass remote. She has hx of both iron and b12 deficiency due to malabsorption, She has been taking supplements. Will check iron panel and b12 level. Will follow cbc. If changes may need to alter the lovenox. No acute issues. Patient's most recent hemoglobin was 9.0. Asymptomatic. We will continue with current plan of care Qualifiers: Anemia type: other cause Other causes of anemia: acute posthemorrhagic Qualified Code(s): D62 - Acute posthemorrhagic anemia Allergy/AdvReac Type Severity Reaction Status Date / Time morphine Allergy Hives Verified 01/23/15 17:24 lisinopril AdvReac Mild Cough Verified 01/23/15 17:24 Exam General appearance: Present: A&O X 3, pleasant and sitting up in chair - Neck Neck exam Present: supple, trachea midline. Absent: lymphadenopathy no bruit - Respiratory Respiratory exam: Present: CTAB. Absent: rales, rhonchi, wheezes - Cardiovascular Cardiovascular exam: Present: RRR, +S1, +S2. Absent: murmur, - GI/Abdominal GI/Abdominal exam: Present: normal bowel sounds, soft, no peritoneal signs. nontender - Extremities Exam Extremities exam: Present: warm, radial pulses palpable and symmetrical. mild pedal edema bilateral Absent: no calf tenderness - Back Exam Additional comments: Lumbar surgical dressing remains dry and intact - Neurological Exam Neurological exam: Present: CN II-XII intact, oriented X3, no focal deficits. Absent: pronater drift, facial droop, speech deficit Additional comments: Patient noted to have slight MS weakness to right lower extremity. RLE MS 4/5 for flex/ext on prox/dist. Slight dorsifexion weakness at 4/5. RUE and LE 5/5 MS - Constitutional Vitals: Temp Pulse Resp BP Pulse Ox 98.1 F 91 18 117/70 94 01/13/18 07:22 01/13/18 07:22 01/13/18 07:22 01/13/18 07:22 01/13/18 07:22 General appearance: Present: A&O X 3, pleasant Internal Medicine: Result - Labs CBC & Chem 7: 01/11/18 04:55 01/11/18 04:55 Consult Discharge Plan - Plan Referrals: Jae Davis MD [Primary Care Provider] -
[2018-01-13] MEDS: Gabapentin 300 MG CAPSULE PO SCH (20:29)
[2018-01-13] MEDS: Latanoprost 2.5 ML BOTTLE BOTH EYES SCH (20:31)
[2018-01-14] MEDS: *HR* OxyCODONE Immed Rel 5 MG TABLET PO PRN ×5 (03:41→21:20)
[2018-01-14 05:19] LABS: Hematocrit 30.9 % (35.3-44.9); Hemoglobin 9.4 g/dL (11.5-15.4); Mean Corpuscular HGB Conc 30.4 g/dL (31.6-35.5); Mean Corpuscular Hemoglobin 28.1 pg (28.0-33.3); Mean Corpuscular Volume 92.5 fL (83.0-100.0); Mean Platelet Volume 10.1 fL (9.4-12.4); Platelet Count 528 K/mcL (140-400); Red Blood Count 3.34 M/mcL (3.82-4.97); Red Cell Distribution Width 15.9 % (11.5-14.5)
[2018-01-14] MEDS: *HR* Enoxaparin 30 MG/0.3 ML SYRINGE SQ SCH ×2 (05:21→17:39)
[2018-01-14 05:39] LABS: BUN/Creatinine Ratio 7 (6-26); Blood Urea Nitrogen 6 mg/dL (8-23); Calcium 8.9 mg/dL (8.6-10.3); Carbon Dioxide 28 mEq/L (23-29); Chloride 100 mEq/L (98-107); Glucose 161 mg/dL (70-105); Osmolality,Calculated 285 (280-300); Potassium 3.6 mEq/L (3.5-5.1); Sodium 137 mEq/L (136-145); eGFR For Non-African Americans > 60 (> 60)
[2018-01-14] MEDS: Cholecalciferol (D-3) 1,000 UNIT TABLET PO SCH (08:18)
[2018-01-14] MEDS: Multivit/Ca/Min/Fe/FA 1 TAB TABLET PO SCH (08:20)
[2018-01-14] MEDS: Ascorbic Acid 500 MG TABLET PO SCH ×2 (08:23→12:02)
[2018-01-14] MEDS: Ketoconazole 2% CRM 15 GM TUBE TP SCH ×2 (08:23→21:11)
[2018-01-14] MEDS ORDERED: Cyanocobalamin (B-12) 1,000 MCG TABLET PO SCH (09:00)
--- NOTE | 2018-01-14 11:54 | Internal Med Progress Note ---
Date of Encounter: 01/14/18 Time of Encounter: 11:52 - Assessment and plan (1) HTN (hypertension) Current Visit: Yes Status: Chronic Assessment and plan: Controlled with current medication. Monitor blood pressure. Qualifiers: Hypertension type: essential hypertension Qualified Code(s): I10 - Essential (primary) hypertension (2) Diabetes Current Visit: Yes Status: Acute Assessment and plan: continue FSBS. continue current meds. controlled. Qualifiers: Diabetes mellitus type: type 2 Diabetes mellitus detention insulin use: without terminal make up operator use Diabetes mellitus complication status: with unspecified complications Qualified Code(s): E11.8 - Type 2 diabetes mellitus with unspecified complications (3) Lower extremity weakness Current Visit: Yes Status: Acute Assessment and plan: continue PT and OT Qualifiers: Laterality: bilateral Qualified Code(s): R29.898 - Other symptoms and signs involving the musculoskeletal system (4) Postoperative infection Current Visit: Yes Status: Acute Assessment and plan: Continue wound vac, Cipro. Follow up with surgeon as scheduled on January 16. Qualifiers: Encounter type: sequela Postoperative infection type: unspecified type Qualified Code(s): T81.40XS - Infection following a procedure, unspecified, sequela - Time Spent With Patient less than 15 minutes - Subjective Interval history: Patient participating well with therapy. Follows up with surgeon on January 16. Denies fever, chills, nausea vomiting or diarrhea. On Lovenox for DVT prophylaxis. Wound back to lumbar incision. States pain is controlled with oxycodone. - Constitutional Vitals: Temp Pulse Resp BP Pulse Ox 98.9 F 86 16 122/71 94 01/14/18 06:57 01/14/18 06:57 01/14/18 06:57 01/14/18 06:57 01/14/18 06:57 General appearance: Present: cooperative, A&O X 3, pleasant, no acute distress, obese, answers questions appropriately - Head Head exam: Present: atraumatic, normocephalic - Eye Eye exam: Present: PERRL, conjuntiva pink, sclera anicteric Pupils: Present: PERRL - Neck Neck exam general surgery: Present: supple, trachea midline. Absent: lymphadenopathy - Respiratory Respiratory exam: Present: CTAB. Absent: accessory muscle use, rales, rhonchi, wheezes - Cardiovascular Cardiovascular exam: Present: RRR, +S1, +S2. Absent: diastolic murmur, gallop, rubs, systolic murmur - GI/Abdominal GI/Abdominal exam: Present: normal bowel sounds, soft, no peritoneal signs. Absent: distended, tenderness - Extremities Exam Extremities exam: Present: warm, radial pulses palpable and symmetrical. Absent: calf tenderness, cyanotic, pedal edema - Incison Comments: Lumbar incision dressing dry and intact. Wound vac intact. Abdominal incision dressing dry and intact. - Neurological Exam Neurological exam: Present: CN II-XII intact, oriented X3, no focal deficits. Absent: pronater drift, facial droop, speech deficit - Skin Skin exam: Present: dry, intact Internal Medicine: Result - Labs CBC & Chem 7: 01/14/18 04:10 01/14/18 04:10 Labs: Short CBC 01/14/18 Range/Units 04:10 WBC 8.6 (4.3-11.1) K/mcL Hgb 9.4 L (11.5-15.4) g/dL Hct 30.9 L (35.3-44.9) % Plt Count 528 H (140-400) K/mcL BMP 01/14/18 04:10 Sodium 137 Potassium 3.6 Chloride 100 Carbon Dioxide 28 BUN 6 L Creatinine 0.81 Glucose 161 H Calcium 8.9 Consult Discharge Plan - Plan Referrals: Jae Davis MD [Primary Care Provider] -
[2018-01-14] MEDS: Gabapentin 300 MG CAPSULE PO SCH (21:11)
[2018-01-14] MEDS: Latanoprost 2.5 ML BOTTLE BOTH EYES SCH (21:11)
[2018-01-15] MEDS: *HR* Enoxaparin 30 MG/0.3 ML SYRINGE SQ SCH ×2 (06:34→20:01)
[2018-01-15] MEDS: *HR* OxyCODONE Immed Rel 5 MG TABLET PO PRN ×4 (06:34→21:56)
[2018-01-15 07:13] LABS: Hematocrit 30.3 % (35.3-44.9); Hemoglobin 9.2 g/dL (11.5-15.4); Mean Corpuscular HGB Conc 30.4 g/dL (31.6-35.5); Mean Corpuscular Hemoglobin 27.9 pg (28.0-33.3); Mean Corpuscular Volume 91.8 fL (83.0-100.0); Mean Platelet Volume 9.7 fL (9.4-12.4); Platelet Count 527 K/mcL (140-400); Red Cell Distribution Width 15.8 % (11.5-14.5)
[2018-01-15 07:38] LABS: BUN/Creatinine Ratio 11 (6-26); Blood Urea Nitrogen 8 mg/dL (8-23); Carbon Dioxide 30 mEq/L (23-29); Chloride 99 mEq/L (98-107); Glucose 165 mg/dL (70-105); Osmolality,Calculated 284 (280-300); Potassium 3.8 mEq/L (3.5-5.1); Sodium 136 mEq/L (136-145); eGFR For Non-African Americans > 60 (> 60)
[2018-01-15] MEDS: Ketoconazole 2% CRM 15 GM TUBE TP SCH ×2 (09:15→20:04)
[2018-01-15] MEDS: Cholecalciferol (D-3) 1,000 UNIT TABLET PO SCH (09:15)
[2018-01-15] MEDS: Ascorbic Acid 500 MG TABLET PO SCH (09:15)
[2018-01-15] MEDS: Multivit/Ca/Min/Fe/FA 1 TAB TABLET PO SCH (09:15)
--- NOTE | 2018-01-15 12:38 | Internal Med Progress Note ---
Date of Encounter: 01/15/18 Time of Encounter: 12:36 - Assessment and plan (1) HTN (hypertension) Current Visit: Yes Status: Chronic Assessment and plan: Controlled with current medication. Monitor blood pressure. Qualifiers: Hypertension type: essential hypertension Qualified Code(s): I10 - Essential (primary) hypertension (2) Diabetes Current Visit: Yes Status: Acute Assessment and plan: continue FSBS. continue current meds. controlled. Qualifiers: Diabetes mellitus type: type 2 Diabetes mellitus snf insulin use: without terminal block assembler use Diabetes mellitus complication status: with unspecified complications Qualified Code(s): E11.8 - Type 2 diabetes mellitus with unspecified complications (3) Lower extremity weakness Current Visit: Yes Status: Acute Assessment and plan: continue PT and OT Qualifiers: Laterality: bilateral Qualified Code(s): R29.898 - Other symptoms and signs involving the musculoskeletal system (4) Postoperative infection Current Visit: Yes Status: Acute Assessment and plan: Continue wound vac, Cipro. Follow up with surgeon as scheduled on January 16. Qualifiers: Encounter type: sequela Postoperative infection type: unspecified type Qualified Code(s): T81.40XS - Infection following a procedure, unspecified, sequela - Time Spent With Patient less than 15 minutes - Subjective Interval history: Patient participating well with therapy. Follows up with surgeon on January 16. Denies fever, chills, nausea vomiting or diarrhea. On Lovenox for DVT prophylaxis. Wound back to lumbar incision. States pain is controlled with oxycodone. Maintaining appetite and hydration. last bowel movement was this morning. - Constitutional Vitals: Temp Pulse Resp BP Pulse Ox 99.0 F 89 18 130/75 94 01/15/18 07:00 01/15/18 07:00 01/15/18 07:00 01/15/18 07:00 01/15/18 07:00 General appearance: Present: cooperative, A&O X 3, pleasant, no acute distress, obese, answers questions appropriately - Head Head exam: Present: atraumatic, normocephalic - Eye Eye exam: Present: PERRL, conjuntiva pink, sclera anicteric Pupils: Present: PERRL - Neck Neck exam general surgery: Present: supple, trachea midline. Absent: lymphadenopathy - Respiratory Respiratory exam: Present: CTAB. Absent: accessory muscle use, rales, rhonchi, wheezes - Cardiovascular Cardiovascular exam: Present: RRR, +S1, +S2. Absent: diastolic murmur, gallop, rubs, systolic murmur - GI/Abdominal GI/Abdominal exam: Present: normal bowel sounds, soft, no peritoneal signs. Absent: distended, tenderness - Extremities Exam Extremities exam: Present: warm, radial pulses palpable and symmetrical. Absent: calf tenderness, cyanotic, pedal edema - Incison Comments: Lumbar dressing dry and intact. wound vac intact. - Neurological Exam Neurological exam: Present: CN II-XII intact, oriented X3, no focal deficits. Absent: pronater drift, facial droop, speech deficit - Skin Skin exam: Present: dry, intact Internal Medicine: Result - Labs CBC & Chem 7: 01/15/18 06:44 01/15/18 06:44 Labs: Short CBC 01/15/18 Range/Units 06:44 WBC 8.3 (4.3-11.1) K/mcL Hgb 9.2 L (11.5-15.4) g/dL Hct 30.3 L (35.3-44.9) % Plt Count 527 H (140-400) K/mcL BMP 01/15/18 06:44 Sodium 136 Potassium 3.8 Chloride 99 Carbon Dioxide 30 H BUN 8 Creatinine 0.76 Glucose 165 H Calcium 9.0 Consult Discharge Plan - Plan Referrals: Jae Davis MD [Primary Care Provider] -
[2018-01-15] MEDS: Latanoprost 2.5 ML BOTTLE BOTH EYES SCH (20:04)
[2018-01-15] MEDS: Gabapentin 300 MG CAPSULE PO SCH (21:57)
[2018-01-16] MEDS: *HR* Enoxaparin 30 MG/0.3 ML SYRINGE SQ SCH (05:31)
[2018-01-16] MEDS: *HR* OxyCODONE Immed Rel 5 MG TABLET PO PRN ×2 (05:43→10:49)
[2018-01-16 06:47] LABS: Hematocrit 30.2 % (35.3-44.9); Hemoglobin 9.2 g/dL (11.5-15.4); Mean Corpuscular HGB Conc 30.5 g/dL (31.6-35.5); Mean Corpuscular Volume 92.1 fL (83.0-100.0); Mean Platelet Volume 9.4 fL (9.4-12.4); Platelet Count 483 K/mcL (140-400); Red Blood Count 3.28 M/mcL (3.82-4.97); Red Cell Distribution Width 15.9 % (11.5-14.5)
[2018-01-16 06:52] VITALS: BP 135/75
[2018-01-16 06:57] LABS: BUN/Creatinine Ratio 8 (6-26); Blood Urea Nitrogen 6 mg/dL (8-23); Carbon Dioxide 31 mEq/L (23-29); Chloride 100 mEq/L (98-107); Glucose 183 mg/dL (70-105); Osmolality,Calculated 286 (280-300); Potassium 3.8 mEq/L (3.5-5.1); Sodium 137 mEq/L (136-145); eGFR For Non-African Americans > 60 (> 60)
[2018-01-16] MEDS: Multivit/Ca/Min/Fe/FA 1 TAB TABLET PO SCH (08:17)
[2018-01-16] MEDS: Ascorbic Acid 500 MG TABLET PO SCH (08:17)
[2018-01-16] MEDS: Cholecalciferol (D-3) 1,000 UNIT TABLET PO SCH (08:17)
[2018-01-16] MEDS: Ketoconazole 2% CRM 15 GM TUBE TP SCH (08:18)
--- NOTE | 2018-01-16 10:12 | Physician Discharge Referral ---
Home Health/Hosp Referral Info Transfer to: Home Health Provider in Charge Post Discharge: PCP - Diagnosis (1) HTN (hypertension) Priority: Secondary Status: Chronic (2) Diabetes Priority: Secondary Status: Acute (3) Lower extremity weakness Priority: Primary Status: Acute (4) Postoperative infection Priority: Primary Status: Acute - Respiratory Orders Smoking Cessation: Smoking cessation has been advised. For more information, call the [place] Tobacco Quit Line at 7-240-AFDV-NOW. - Diet/Nutrition Diet/Nutrition Orders: No Concentrated Sweets - Activity Activity Orders: Ambulate, Walker - Services Needed Following services are medically necessary services: Nursing, Physical Therapy - Transfer Medications Home Medications: Ascorbic Acid [Vitamin C] 1,000 mg PO DAILY 01/19/15 [History] Cyanocobalamin (Vitamin B-12) [Vitamin B12] 100 mcg PO 2XW 01/19/15 [History] Latanoprost [Xalatan] 1 drop BOTH EYES HS 01/19/15 [History] Multivitamin [Multi-Day Vitamins] 1 tab PO DAILY 01/19/15 [History] Acetaminophen [Tylenol] 325 mg PO Q6HR PRN 12/14/17 [History] Cholecalciferol (D-3) [Vitamin D] 4,000 unit PO DAILY 12/14/17 [History] Ferrous Sulfate [Iron] 325 mg PO TIDWM 12/14/17 [History] Gabapentin [Neurontin] 300 mg PO HS 12/14/17 [History] Metformin HCl 500 mg PO BIDWM 12/14/17 [History] MiraLAX 17 gm PO DAILY 12/14/17 [History] Vitamin B-12 1,000 mg PO 2XW 12/14/17 [History] Allergies/Adverse Reactions: Allergy/AdvReac Type Severity Reaction Status Date / Time morphine Allergy Hives Verified 01/23/15 17:24 lisinopril AdvReac Mild Cough Verified 01/23/15 17:24 Certification: Further, I certify that my clinical findings support that this patient is homebound (i.e. absences from home require considerable and taxing effort and are for medical reasons or holiness services or infrequently or short duration when for other reasons) because: Homebound Reason: Patient requires assistance of a person or device to safely le ave home, Post-surgery restriction and or conditions limit ability to leave home Attestation: My signature below is to certify that this patient is under my care and that I, or nurse practitioner, or a physician's assistant director of financial aid working with me, has a [id number] encounter with this patient.
--- NOTE | 2018-01-16 10:14 | Discharge Summary ---
Orders not resulted at time of discharge: Pending orders 01/17/18 04:00 BMP [Basic Metabolic Panel] AM 0400 Date of Encounter: 01/16/18 Time of Encounter: 10:12 - Discharge Diagnosis (1) HTN (hypertension) Priority: Secondary Status: Chronic Comments: Controlled with current medication. Monitor blood pressure. Follow up with PCP. Qualifiers: Hypertension type: essential hypertension Qualified Code(s): I10 - Essential (primary) hypertension (2) Diabetes Priority: Secondary Status: Chronic Comments: Controlled with current medication. Monitor fingerstick blood sugar. Follow up with PCP. Continue diabetic diet. 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 Continue home health PT. Follow up with ortho as scheduled. Qualifiers: Laterality: bilateral Qualified Code(s): R29.898 - Other symptoms and signs involving the musculoskeletal system (4) Postoperative infection Priority: Primary Status: Acute Comments: Scheduled for follow-up with surgeon today. White blood cell count normal. Patient afebrile. Pain controlled. Qualifiers: Encounter type: sequela Postoperative infection type: unspecified type Qualified Code(s): T81.40XS - Infection following a procedure, unspecified, sequela Hospital course: Ms. Chandler is a 72 year old female discharging to home with . Scheduled for follow-up with surgeon this afternoon. Continues to have wound vac to lumbar incision. Taking Cipro for recent surgical site infection. Will continue home health PT and nursing. Ambulating with Walker. Pain controlled with current medication. Last bowel movement was yesterday. Denies fever, chills, nausea vomiting or diarrhea. Maintaining appetite and hydration. Discharge discussed with: patient, family, nurse, social work - Time Spent with Patient Total time spent providing and/or coordinating discharge services: Less than 30 minutes - Discharge Medications Home Medications: Ascorbic Acid [Vitamin C] 1,000 mg PO DAILY 01/19/15 [History] Cyanocobalamin (Vitamin B-12) [Vitamin B12] 100 mcg PO 2XW 01/19/15 [History] Latanoprost [Xalatan] 1 drop BOTH EYES HS 01/19/15 [History] Multivitamin [Multi-Day Vitamins] 1 tab PO DAILY 01/19/15 [History] Acetaminophen [Tylenol] 325 mg PO Q6HR PRN 12/14/17 [History] Cholecalciferol (D-3) [Vitamin D] 4,000 unit PO DAILY 12/14/17 [History] Ferrous Sulfate [Iron] 325 mg PO TIDWM 12/14/17 [History] Gabapentin [Neurontin] 300 mg PO HS 12/14/17 [History] Metformin HCl 500 mg PO BIDWM 12/14/17 [History] MiraLAX 17 gm PO DAILY 12/14/17 [History] Vitamin B-12 1,000 mg PO 2XW 12/14/17 [History] Ciprofloxacin [Cipro] 750 mg PO BID tablet 01/16/18 [Rx] Cyclobenzaprine [Flexeril] 10 mg PO HS #7 tablet 01/16/18 [Rx] Docusate [Colace] 100 mg PO BID capsule 01/16/18 [Rx] OxyCODONE Immed Rel [Roxicodone 5 MG] 5 mg PO Q4HR PRN 7 Days #20 tablet 01/16/18 [Rx] Allergies/Adverse Reactions: Allergy/AdvReac Type Severity Reaction Status Date / Time morphine Allergy Hives Verified 01/23/15 17:24 lisinopril AdvReac Mild Cough Verified 01/23/15 17:24 Date of admission: 01/10/18 16:14 Primary care physician: Jae Davis MD Consults: 01/10/18 17:25 Consult to Physical Therapy [CONS] Routine Comment: Evaluate, develop and implement POC Reason for Consult: s/p lumbar I&D Does patient have active BEDREST order?: No Is patient medically & hemodynamically stable?: Yes Consult to Recreational Therapy [CONS] Routine Comment: 01/10/18 17:26 Consult to Occupational Therapy [CONS] Routine Comment: Evaluate, develop and implement POC Reason for Consult: s/p lumbar I&D Does patient have active BEDREST order?: No Is patient medically & hemodynamically stable?: Yes Consult to Gold Nib Grinder [CONS] Routine Reason for SW Consult: discharge planning 01/10/18 17:27 Consult to Physical Medicine/Rehab [CONS] Routine Reason for Consult: s/p lumbar I&D Call Completed: Yes Discharging clinician: Pierre Baldwin Anticipated date of discharge: 01/16/18 - Constitutional Vitals: Temp Pulse Resp BP Pulse Ox 98.8 F 86 16 135/75 95 01/16/18 06:51 01/16/18 06:51 01/16/18 06:51 01/16/18 06:51 01/16/18 06:51 General appearance: Present: cooperative, A&O X 3, pleasant, no acute distress, obese, answers questions appropriately - Head Head exam: Present: atraumatic, normocephalic - Eye Eye exam: Present: PERRL, conjuntiva pink, sclera anicteric Pupils: Present: PERRL - Neck Neck exam general surgery: Present: supple, trachea midline. Absent: lymphadenopathy - Respiratory Respiratory exam: Present: CTAB. Absent: accessory muscle use, rales, rhonchi, wheezes - Cardiovascular Cardiovascular exam: Present: RRR, +S1, +S2. Absent: diastolic murmur, gallop, rubs, systolic murmur - GI/Abdominal GI/Abdominal exam: Present: normal bowel sounds, soft, no peritoneal signs. Absent: distended, tenderness - Extremities Exam Extremities exam: Present: warm, radial pulses palpable and symmetrical. Absent: calf tenderness, cyanotic, pedal edema - Neurological Exam Neurological exam: Present: CN II-XII intact, oriented X3, no focal deficits. Absent: pronater drift, facial droop, speech deficit - Skin Skin exam: Present: dry, intact Additional comments: Abdominal and lumbar wounds dressing dry and intact. wound vac to lumbar incision. - Patient Status Disposition: Home Health Service Condition: Good Functional capacity at discharge: uses cane/walker Overall status at discharge: patient is progressing back to baseline - Discharge Instructions Follow Up With: Jae Davis MD [Primary Care Provider] - - Diet and Activity Activity: as per physical therapy Diet: diabetic diet
== END 2018-01-16 11:08 | disposition home health service (06) | DRG 949 ==
LOC: INPGRE 01-10 16:14

== ENCOUNTER 2021-04-29 17:25 | Inpatient (IN) ==
[2021-04-29] MEDS ORDERED: Acetaminophen 325 MG TABLET PO PRN (19:14)
[2021-04-29] MEDS: *HR* HYDROcodone/Acet 5/325 mg TABLET PO PRN (21:55)
[2021-04-29] MEDS: Gabapentin 300 MG CAPSULE PO SCH (21:55)
[2021-04-29] MEDS: Cyanocobalamin (B-12) 1,000 MCG TABLET PO SCH (22:26)
[2021-04-29] MEDS: Latanoprost 2.5 ML BOTTLE BOTH EYES SCH (23:58)
[2021-04-30 06:03] LABS: Basophils # 0.1 K/mcL (0.0-0.2); Basophils % 0.5 %; Eosinophils # 0.3 K/mcL (0.0-0.6); Eosinophils % 2.8 %; Hematocrit 31.2 % (35.3-44.9); Hemoglobin 9.5 g/dL (11.5-15.4); Immature Granulocytes % 2.1 % (0-4); Lymphocytes % 18.3 %; Mean Corpuscular HGB Conc 30.4 g/dL (31.6-35.5); Mean Corpuscular Hemoglobin 28.5 pg (28.0-33.3); Mean Corpuscular Volume 93.7 fL (83.0-100.0); Mean Platelet Volume 9.8 fL (9.4-12.4); Monocytes # 0.6 K/mcL (0.0-1.3); Monocytes % 5.6 %; Neutrophils # 7.8 K/mcL (1.6-8.9); Platelet Count 481 K/mcL (140-400); Red Blood Count 3.33 M/mcL (3.82-4.97); Segmented Neutrophils % 70.7 %
[2021-04-30] MEDS: *HR* Enoxaparin 40 MG/0.4 ML SYRINGE SQ SCH (06:17)
[2021-04-30 06:32] LABS: BUN/Creatinine Ratio 15 (6-26); Blood Urea Nitrogen 14 mg/dL (8-23); Calcium 9.5 mg/dL (8.6-10.3); Carbon Dioxide 29 mEq/L (23-29); Chloride 97 mEq/L (98-107); Glucose 152 mg/dL (70-105); Osmolality,Calculated 283 (280-300); Potassium 3.6 mEq/L (3.5-5.1); Sodium 135 mEq/L (136-145); eGFR For African Americans > 60 (> 60); eGFR For Non-African Americans 60 (> 60)
[2021-04-30] MEDS: Ascorbic Acid 500 MG TABLET PO SCH (09:22)
[2021-04-30] MEDS: Gabapentin 300 MG CAPSULE PO SCH ×2 (09:22→20:26)
[2021-04-30] MEDS: *HR* SitaGLIPtin 25 MG TABLET PO SCH (09:22)
[2021-04-30] MEDS: *HR* HYDROcodone/Acet 5/325 mg TABLET PO PRN (20:26)
[2021-04-30] MEDS: Latanoprost 2.5 ML BOTTLE BOTH EYES SCH (20:26)
[2021-05-01] MEDS: *HR* Enoxaparin 40 MG/0.4 ML SYRINGE SQ SCH (05:57)
[2021-05-01] MEDS: *HR* SitaGLIPtin 25 MG TABLET PO SCH (08:29)
[2021-05-01] MEDS: Gabapentin 300 MG CAPSULE PO SCH ×2 (08:30→19:22)
[2021-05-01] MEDS: Ascorbic Acid 500 MG TABLET PO SCH (08:30)
[2021-05-01] MEDS: *HR* HYDROcodone/Acet 5/325 mg TABLET PO PRN ×2 (11:06→19:23)
[2021-05-01] MEDS: Latanoprost 2.5 ML BOTTLE BOTH EYES SCH (19:23)
[2021-05-02] MEDS: *HR* Enoxaparin 40 MG/0.4 ML SYRINGE SQ SCH (04:50)
[2021-05-02] MEDS: *HR* HYDROcodone/Acet 5/325 mg TABLET PO PRN ×2 (04:52→18:45)
[2021-05-02] MEDS: Ascorbic Acid 500 MG TABLET PO SCH (08:48)
[2021-05-02] MEDS: *HR* SitaGLIPtin 25 MG TABLET PO SCH (08:48)
[2021-05-02] MEDS: Gabapentin 300 MG CAPSULE PO SCH ×2 (08:49→20:29)
[2021-05-02] MEDS: Latanoprost 2.5 ML BOTTLE BOTH EYES SCH (20:30)
[2021-05-03] MEDS: *HR* Enoxaparin 40 MG/0.4 ML SYRINGE SQ SCH (06:24)
[2021-05-03] MEDS: *HR* SitaGLIPtin 25 MG TABLET PO SCH (08:32)
[2021-05-03] MEDS: Gabapentin 300 MG CAPSULE PO SCH ×2 (08:32→21:34)
[2021-05-03] MEDS: Ascorbic Acid 500 MG TABLET PO SCH (08:32)
[2021-05-03] MEDS: *HR* HYDROcodone/Acet 5/325 mg TABLET PO PRN ×3 (10:01→21:34)
[2021-05-03] MEDS: Latanoprost 2.5 ML BOTTLE BOTH EYES SCH (21:34)
[2021-05-04] MEDS: *HR* Enoxaparin 40 MG/0.4 ML SYRINGE SQ SCH (04:46)
[2021-05-04 04:59] LABS: Basophils # 0.1 K/mcL (0.0-0.2); Basophils % 0.6 %; Eosinophils # 0.3 K/mcL (0.0-0.6); Hematocrit 30.9 % (35.3-44.9); Hemoglobin 9.4 g/dL (11.5-15.4); Immature Granulocytes % 0.8 % (0-4); Lymphocytes # 2.4 K/mcL (0.6-4.6); Lymphocytes % 25.9 %; Mean Corpuscular HGB Conc 30.4 g/dL (31.6-35.5); Mean Corpuscular Hemoglobin 28.4 pg (28.0-33.3); Mean Corpuscular Volume 93.4 fL (83.0-100.0); Mean Platelet Volume 10.3 fL (9.4-12.4); Monocytes # 0.7 K/mcL (0.0-1.3); Neutrophils # 5.8 K/mcL (1.6-8.9); Platelet Count 525 K/mcL (140-400); Red Blood Count 3.31 M/mcL (3.82-4.97); Red Cell Distribution Width 14.2 % (11.5-14.5); Segmented Neutrophils % 62.7 %; White Blood Count 9.3 K/mcL (4.3-11.1)
[2021-05-04 05:14] LABS: BUN/Creatinine Ratio 21 (6-26); Blood Urea Nitrogen 18 mg/dL (8-23); Calcium 9.4 mg/dL (8.6-10.3); Carbon Dioxide 29 mEq/L (23-29); Chloride 102 mEq/L (98-107); Glucose 143 mg/dL (70-105); Osmolality,Calculated 292 (280-300); Potassium 4.4 mEq/L (3.5-5.1); Sodium 139 mEq/L (136-145); eGFR For African Americans > 60 (> 60); eGFR For Non-African Americans > 60 (> 60)
[2021-05-04] MEDS: *HR* SitaGLIPtin 25 MG TABLET PO SCH (08:23)
[2021-05-04] MEDS: *HR* HYDROcodone/Acet 5/325 mg TABLET PO PRN ×3 (08:24→21:15)
[2021-05-04] MEDS: Gabapentin 300 MG CAPSULE PO SCH ×2 (08:24→21:14)
[2021-05-04] MEDS: Ascorbic Acid 500 MG TABLET PO SCH (08:24)
[2021-05-04] MEDS: Latanoprost 2.5 ML BOTTLE BOTH EYES SCH (21:15)
[2021-05-05] MEDS: *HR* Enoxaparin 40 MG/0.4 ML SYRINGE SQ SCH (05:09)
[2021-05-05] MEDS: Ascorbic Acid 500 MG TABLET PO SCH ×2 (08:37→08:38)
[2021-05-05] MEDS: Gabapentin 300 MG CAPSULE PO SCH ×2 (08:39→20:13)
[2021-05-05] MEDS: *HR* SitaGLIPtin 25 MG TABLET PO SCH (08:46)
[2021-05-05] MEDS: *HR* HYDROcodone/Acet 5/325 mg TABLET PO PRN ×2 (10:24→16:24)
[2021-05-05] MEDS: Latanoprost 2.5 ML BOTTLE BOTH EYES SCH (20:14)
[2021-05-06] MEDS: *HR* Enoxaparin 40 MG/0.4 ML SYRINGE SQ SCH (05:20)
[2021-05-06] MEDS: *HR* SitaGLIPtin 25 MG TABLET PO SCH (07:26)
[2021-05-06] MEDS: Gabapentin 300 MG CAPSULE PO SCH ×2 (07:26→20:25)
[2021-05-06] MEDS: *HR* HYDROcodone/Acet 5/325 mg TABLET PO PRN ×2 (12:53→20:24)
[2021-05-06] MEDS: Cyanocobalamin (B-12) 1,000 MCG TABLET PO SCH (20:26)
[2021-05-06] MEDS: Latanoprost 2.5 ML BOTTLE BOTH EYES SCH (20:26)
[2021-05-06] MEDS ORDERED: MOM Conc 10 ML UD.LIQ PO SCH (21:00)
[2021-05-07] MEDS: *HR* Enoxaparin 40 MG/0.4 ML SYRINGE SQ SCH (05:44)
[2021-05-07] MEDS: *HR* SitaGLIPtin 25 MG TABLET PO SCH (08:14)
[2021-05-07] MEDS: *HR* HYDROcodone/Acet 5/325 mg TABLET PO PRN ×3 (08:14→19:59)
[2021-05-07] MEDS: Ascorbic Acid 500 MG TABLET PO SCH (08:14)
[2021-05-07] MEDS: Gabapentin 300 MG CAPSULE PO SCH ×2 (08:15→19:59)
[2021-05-07] MEDS: MOM Conc 10 ML UD.LIQ PO SCH ×2 (13:55→19:59)
[2021-05-07] MEDS: Latanoprost 2.5 ML BOTTLE BOTH EYES SCH (20:00)
[2021-05-08] MEDS: *HR* HYDROcodone/Acet 5/325 mg TABLET PO PRN ×3 (04:33→20:40)
[2021-05-08] MEDS: *HR* Enoxaparin 40 MG/0.4 ML SYRINGE SQ SCH (05:48)
[2021-05-08] MEDS: MOM Conc 10 ML UD.LIQ PO SCH ×2 (07:44→20:43)
[2021-05-08] MEDS: Ascorbic Acid 500 MG TABLET PO SCH (07:45)
[2021-05-08] MEDS: Gabapentin 300 MG CAPSULE PO SCH ×2 (07:45→20:41)
[2021-05-08] MEDS: *HR* SitaGLIPtin 25 MG TABLET PO SCH (07:45)
[2021-05-08 13:37] LABS: Bilirubin,Urine Negative (Negative); Blood,Urine Trace-lysed (Negative); Clarity,Urine Cloudy (Clear); Color,Urine Yellow (Yellow); Glucose,Urine (UA) Normal (Normal); Ketones,Urine Negative (Negative); Leukocyte Esterase,Urine Large (Negative); Nitrite,Urine Positive (Negative); Protein,Urine Negative (Neg-Trace); Specific Gravity,Urine 1.015 (1.010-1.025); Urobilinogen,Urine Normal (Normal)
[2021-05-08 13:38] LABS: Bacteria,Urine Many per hpf (None-Few); Mucus,Urine Few per lpf (None-Few); Squamous Epithelial Cell,Urine Few per hpf (None-Few); WBC,Urine 15-30 per hpf (0-3)
[2021-05-08] MEDS: Amoxicillin/Clavulanate 500 MG TABLET PO SCH (14:30)
[2021-05-08] MEDS: Latanoprost 2.5 ML BOTTLE BOTH EYES SCH (20:43)
[2021-05-09 04:37] LABS: Basophils # 0.1 K/mcL (0.0-0.2); Basophils % 0.7 %; Eosinophils # 0.3 K/mcL (0.0-0.6); Eosinophils % 3.4 %; Hematocrit 31.7 % (35.3-44.9); Hemoglobin 9.4 g/dL (11.5-15.4); Immature Granulocytes % 0.4 % (0-4); Lymphocytes % 27.3 %; Mean Corpuscular HGB Conc 29.7 g/dL (31.6-35.5); Mean Corpuscular Volume 94.3 fL (83.0-100.0); Monocytes # 0.6 K/mcL (0.0-1.3); Monocytes % 7.8 %; Neutrophils # 4.4 K/mcL (1.6-8.9); Platelet Count 408 K/mcL (140-400); Red Blood Count 3.36 M/mcL (3.82-4.97); Red Cell Distribution Width 14.5 % (11.5-14.5); Segmented Neutrophils % 60.4 %; White Blood Count 7.3 K/mcL (4.3-11.1)
[2021-05-09 04:51] LABS: BUN/Creatinine Ratio 20 (6-26); Blood Urea Nitrogen 17 mg/dL (8-23); Calcium 9.3 mg/dL (8.6-10.3); Carbon Dioxide 33 mEq/L (23-29); Chloride 98 mEq/L (98-107); Glucose 136 mg/dL (70-105); Osmolality,Calculated 288 (280-300); Potassium 3.9 mEq/L (3.5-5.1); Sodium 137 mEq/L (136-145); eGFR For African Americans > 60 (> 60); eGFR For Non-African Americans > 60 (> 60)
[2021-05-09] MEDS: *HR* Enoxaparin 40 MG/0.4 ML SYRINGE SQ SCH (05:43)
[2021-05-09] MEDS: *HR* HYDROcodone/Acet 5/325 mg TABLET PO PRN ×3 (05:44→20:12)
[2021-05-09] MEDS: Gabapentin 300 MG CAPSULE PO SCH ×2 (08:53→20:12)
[2021-05-09] MEDS: MOM Conc 10 ML UD.LIQ PO SCH ×2 (08:53→20:11)
[2021-05-09] MEDS: Amoxicillin/Clavulanate 500 MG TABLET PO SCH ×2 (08:53→14:49)
[2021-05-09] MEDS: *HR* SitaGLIPtin 25 MG TABLET PO SCH (08:53)
[2021-05-09] MEDS: Ascorbic Acid 500 MG TABLET PO SCH (08:53)
[2021-05-09] MEDS ORDERED: Fosfomycin Tromethamine 3 GM Packet PO ONE ×2 (16:00→20:00)
[2021-05-09] MEDS: Latanoprost 2.5 ML BOTTLE BOTH EYES SCH (20:18)
[2021-05-10 04:33] LABS: Basophils % 0.6 %; Eosinophils # 0.2 K/mcL (0.0-0.6); Eosinophils % 3.5 %; Hematocrit 32.2 % (35.3-44.9); Hemoglobin 9.7 g/dL (11.5-15.4); Immature Granulocytes % 0.2 % (0-4); Lymphocytes # 2.2 K/mcL (0.6-4.6); Mean Corpuscular HGB Conc 30.1 g/dL (31.6-35.5); Mean Corpuscular Hemoglobin 28.2 pg (28.0-33.3); Mean Corpuscular Volume 93.6 fL (83.0-100.0); Mean Platelet Volume 10.1 fL (9.4-12.4); Monocytes # 0.6 K/mcL (0.0-1.3); Monocytes % 8.4 %; Neutrophils # 3.5 K/mcL (1.6-8.9); Platelet Count 367 K/mcL (140-400); Red Blood Count 3.44 M/mcL (3.82-4.97); Red Cell Distribution Width 14.6 % (11.5-14.5); Segmented Neutrophils % 53.3 %; White Blood Count 6.5 K/mcL (4.3-11.1)
[2021-05-10] MEDS: *HR* Enoxaparin 40 MG/0.4 ML SYRINGE SQ SCH (06:59)
[2021-05-10] MEDS: *HR* HYDROcodone/Acet 5/325 mg TABLET PO PRN ×3 (07:18→20:54)
[2021-05-10] MEDS: MOM Conc 10 ML UD.LIQ PO SCH ×3 (07:19→21:04)
[2021-05-10] MEDS: Gabapentin 300 MG CAPSULE PO SCH ×2 (07:19→20:53)
[2021-05-10] MEDS: Ascorbic Acid 500 MG TABLET PO SCH (07:19)
[2021-05-10] MEDS: *HR* SitaGLIPtin 25 MG TABLET PO SCH (07:19)
[2021-05-10 20:01] VITALS: PULSE 75; TEMP 98
[2021-05-10] MEDS: Lactobacillus 1 EACH CAP.SPRINK PO SCH (20:54)
[2021-05-10] MEDS: Latanoprost 2.5 ML BOTTLE BOTH EYES SCH (20:54)
[2021-05-11] MEDS: *HR* Enoxaparin 40 MG/0.4 ML SYRINGE SQ SCH (06:14)
[2021-05-11] MEDS: *HR* HYDROcodone/Acet 5/325 mg TABLET PO PRN ×2 (06:14→14:07)
[2021-05-11 07:50] VITALS: BP 134/70; RESP 17; O2SAT 98
[2021-05-11] MEDS: MOM Conc 10 ML UD.LIQ PO SCH (08:49)
[2021-05-11] MEDS: Gabapentin 300 MG CAPSULE PO SCH (08:49)
[2021-05-11] MEDS: Ascorbic Acid 500 MG TABLET PO SCH (08:49)
[2021-05-11] MEDS: Lactobacillus 1 EACH CAP.SPRINK PO SCH (08:49)
[2021-05-11] MEDS: *HR* SitaGLIPtin 25 MG TABLET PO SCH (08:49)
[2021-05-11] MEDS ORDERED: Fosfomycin Tromethamine 3 GM Packet PO SCH (09:00)
== END 2021-05-11 14:40 | disposition home health service (06) ==
LOC: INPGRE 18:50
PROVIDERS: ADMIT Family Medicine; ATTEND Family Medicine